=== PATIENT | female | born 1970 | race Caucasian/White ===

== ENCOUNTER 2017-10-21 11:35 | Emergency (ER) | payer BC, SELFPAY ==
[2017-10-21 14:01] VITALS: BP 149/84; PULSE 85; RESP 22; TEMP 36.4; O2SAT 100; BMI 32.0
--- NOTE | 2017-10-21 15:02 | HMH.EDUTC ---
[facility] [place] Clinical Impression: Cellulitis of right breast Acute serous otitis media of right ear Qualifiers: Recurrence: not specified as recurrent Qualified Code(s): H65.01 - Acute serous otitis media, right ear Disposition: Home, Self-Care Condition on Discharge: Good Instructions: DI for Cellulitis -- Adult, DI for Mastitis, DI for Eustachian Tube Dysfunction-Adult Additional Instructions: * Start antibiotic(s) immediately and be sure to take as ordered for the FULL length of time although you should start to see improvement over the next 24-48 hours. FU if 24 hours for reevaluation. I know you don't have primary care so you can return to [facility] or Dr. Bruce, your S[employer]IOR [employer]. * Monitor closely. Outlined redness so that you can monitor easier. FU immediately for new or worsening symptoms ( including but not limited to redness, swelling, red streaking, fever, chills). * Warm compresses 15 min 3-4 times a day * Monitor Temp. Seek treatment if fever develops. * For pain/inflammation: Tylenol every 4 hours as needed no more then 5 times a day or 4000mg in 24 hours and/or ibuprofen every 6 hours as needed no more then 3200mg in 24 hours (as long as your primary care doctor has told you that it is ok to take both) for fever/aches/pain. ER if fever no less than 101 despite tylenol and ibuprofen For your ear Can be due to eustachian tube dysfunction. Sleep elevated Start flonase and claritin as discussed No steroids w/ current breast infection. Prescriptions: Fluticasone Propionate [Flonase 50mcg nasal spray 16gm] 2 spr NS DAILY #1 bottle Loratadine [Claritin 10mg Tablet] 10 mg PO DAILY #14 tablet Sulfamethoxazole/Trimethoprim [Bactrim DS tablet] 2 each PO BID #40 tablet Referrals: Jed Bruce MD [Staff Physician] - (As we discussed. 24 hours for reevaluation and immediately for new or worsening symptoms. ) Time of Disposition: 15:19 Medical Decision Making Vital Signs: 10/21/17 14:01 Temperature 97.5 F L Temperature Source Temporal Artery Scan Pulse Rate [Right Radial] 85 Respiratory Rate 22 Blood Pressure [Right Arm] 149/84 Blood Pressure Mean [Right Arm] 105 Blood Pressure Source [Right Arm] Automatic Cuff Blood Pressure Position [Right Arm] Sitting 02 Sat by Pulse Oximetry 100 Oxygen Delivery Method Room Air - Junior Inquiry Pt receiving controlled substance: No - Reevaluation(s) Time: 15:10 Reevaluation #1: Discussed transfer to er to rule out breast abscess and for possible IV antibiotics. Pt refused. wants PO antibiotics and if no better or gets worse, will follow up at that time. STRONGLY recommended reevaluation in 24 hours but sooner for worsening symptoms like fever, malaise, bodyaches, nausea [facility] [place] - General Stated complaint: poss spider bite Time Seen by Provider: 10/21/17 15:02 Mode of Arrival: Family Vehicle Source of Information: Patient Description of Symptoms (Recalled from Triage Doc. by RN): PT C/O RIGHT EAR PAIN AND POSSIBLE SPIDER BIT ON RIGHT BREAST. HEENT Symptoms (Recalled from RN notes): Yes (RIGHT EAR PAIN) Resp Symptoms (Recalled from RN notes): No Skin Symptoms (Recalled from RN notes): No MS Symptoms (Recalled from RN notes): No Functional Status (Recalled from RN notes): NA - History of Present Illness Provider Complaint: c/o painful red right breast that she thinks could be the result of a spider bite but while here, also feeling like fluid behind right ear. Hx of this in the past and typically takes steroids for it. Right breast discomfort first noticed yesterday. Mild. Redness seen. Woke up this morning w/ more redness and more pain. Tylenol and motrin help. No fever, bodyaches, chills, nausea. thinks related to spider bite but no known injury/trauma. Just because spider bites turn your skin red . Right ear pressure started 2-3 days ago. Hx of fluid behind my ear drum . Hasn't taken or tried anything for symptoms except tylenol and motrin. That isn't helping. - Rela
--- NOTE | 2017-10-21 15:11 | ED_ITS ---
[facility] – [place] Disposition Clinical Impression: Cellulitis of right breast Acute serous otitis media of right ear Qualifiers: Recurrence: not specified as recurrent Qualified Code(s): H65.01 - Acute serous otitis media, right ear Disposition: Home, Self-Care Condition on Discharge: Good Instructions: DI for Cellulitis -- Adult, DI for Mastitis, DI for Eustachian Tube Dysfunction-Adult Additional Instructions: * Start antibiotic(s) immediately and be sure to take as ordered for the FULL length of time although you should start to see improvement over the next 24-48 hours. FU if 24 hours for reevaluation. 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 * Monitor closely. Outlined redness so that you can monitor easier. FU immediately for new or worsening symptoms ( including but not limited to redness , swelling, red streaking, fever, chills). * Warm compresses 15 min 3-4 times a day * Monitor Temp. Seek treatment if fever develops. * For pain/inflammation: Tylenol every 4 hours as needed no more then 5 times a day or 4000mg in 24 hours and/or ibuprofen every 6 hours as needed no more then 3200mg in 24 hours (as long as your primary care doctor has told you that it is ok to take both) for fever/aches/pain. ER if fever no less than 101 despite tylenol and ibuprofen For your ear Can be due to eustachian tube dysfunction. Sleep elevated Start flonase and claritin as discussed No steroids w/ current breast infection. Prescriptions: Fluticasone Propionate [Flonase 50mcg nasal spray 16gm] 2 spr NS DAILY #1 bottle Loratadine [Claritin 10mg Tablet] 10 mg PO DAILY #14 tablet Sulfamethoxazole/Trimethoprim [Bactrim DS tablet] 2 each PO BID #40 tablet Referrals: Jed Bruce MD [Staff Physician] - (As we discussed. 24 hours for reevaluation and immediately for new or worsening symptoms. ) Time of Disposition: 15:19 Medical Decision Making Vital Signs: 10/21/17 14:01 Temperature 97.5 F L Temperature Source Temporal Artery Scan Pulse Rate [Right Radial] 85 Respiratory Rate 22 Blood Pressure [Right Arm] 149/84 Blood Pressure Mean [Right Arm] 105 Blood Pressure Source [Right Arm] Automatic Cuff Blood Pressure Position [Right Arm] Sitting 02 Sat by Pulse Oximetry 100 Oxygen Delivery Method Room Air - Junior Inquiry Pt receiving controlled substance: No - Reevaluation(s) Time: 15:10 Reevaluation #1: Discussed transfer to er to rule out breast abscess and for possible IV antibiotics. Pt refused. wants PO antibiotics and if no better or gets worse, will follow up at that time. STRONGLY recommended reevaluation in 24 hours but sooner for worsening symptoms like fever, malaise, bodyaches, nausea [facility] – [place] HPI - General Stated complaint: poss spider bite Time Seen by Provider: 10/21/17 15:02 Mode of Arrival: Family Vehicle Source of Information: Patient Description of Symptoms (Recalled from Triage Doc. by RN): PT C/O RIGHT EAR PAIN AND POSSIBLE SPIDER BIT ON RIGHT BREAST. HEENT Symptoms (Recalled from RN notes): Yes (RIGHT EAR PAIN) Resp Symptoms (Recalled from RN notes): No Skin Symptoms (Recalled from RN notes): No MS Symptoms (Recalled from RN notes): No Functional Status (Recalled from RN notes): NA - History of Present Illness Provider Complaint: c/o painful red right breast that she thinks could be the result of a spider bite but while here, also feeling like fluid behind right ear. Hx of this in the past and typically takes steroids for it. Right b
== END 2017-10-21 15:28 | disposition home or self-care (01) ==
PROVIDERS: Emergency Provider Nurse Practitioner Family
DX: N61.1 Abscess of the breast and nipple (principal); H65.01 Acute serous otitis media, right ear; F17.210 Nicotine dependence, cigarettes, uncomplicated
CPT/HCPCS: 99202

== ENCOUNTER 2017-12-04 17:23 | Emergency (ER) | payer BC, OTHER, SELFPAY ==
[2017-12-04 18:45] VITALS: BP 111/80; PULSE 76; RESP 20; TEMP 36.8; O2SAT 99; BMI 34.0
--- NOTE | 2017-12-04 18:45 | XR_ITS ---
XR foot LT min 3V Ordering Physician: Susan Weems Patient Age: 47 years: Female HISTORY: ITS.REASON climbed up and down latter with now foot pain. No acute injury: Left foot PAIN foot pain left TECHNIQUE: 3 views left foot left COMPARISON :None of left foot. There is a right foot from 2016 FINDINGS Left foot is intact with no fracture evident. Bones well mineralized joint spaces well-maintained. Carpals unremarkable. Plantar calcaneal spur 7 mm length well-defined & similar to prior studies right foot . There is question regarding potential fracture at the proximal third and fourth metatarsal but believe these are intact with the overlapping contour lines from the articulating adjacent metatarsal base accounts the appearance here with no convincing fracture.: IMPRESSION . No no fracture evident . Left foot intact. Plantar calcaneal spur noted
--- NOTE | 2017-12-04 19:07 | HMH.EDUTC ---
[facility] [place]: Fracture of metatarsal bone of left foot Qualifiers: Encounter type: initial encounter Metatarsal bone: third Fracture type: closed Fracture alignment: nondisplaced Qualified Code(s): S92.335A - Nondisplaced fracture of third metatarsal bone, left foot, initial encounter for closed fracture Disposition: Home, Self-Care Condition on Discharge: Good Instructions: How To Perform RICE (Rest, Ice, Compress, Elevate) Additional Instructions: *RICE, Rest the extremity, Ice 15-20 minutes 3-4 times daily, Compress- wear the artur wrap as discussed as much as possible to help reduce swelling and pain, Elevate the extremity when at rest *Artur wrap is for support and help control swelling, use it except in the shower. Be sure that is not to tight but not to loose either *Elevate when resting *Ibuprofen 600-800mg every 6-8 hours as needed for pain an inflammation. If need something more can take Tylenol in between doses of Ibuprofen to help Immediately follow up for new or worsening of symptoms, or no noticeable improvement over the next 3-5 days Referrals: Dania Swain DPM [Physician] - Forms: Work/School Release Time of Disposition: 19:24 Medical Decision Making - Medical Records Medical records reviewed: Yes: I reviewed the patient's medical records. Vital Signs: 12/04/17 18:45 Temperature 98.2 F Temperature Source Temporal Artery Scan Pulse Rate [Right] 76 Respiratory Rate 20 Blood Pressure [Right Arm] 111/80 Blood Pressure Mean [Right Arm] 90 Blood Pressure Source [Right Arm] Automatic Cuff Blood Pressure Position [Right Arm] Sitting 02 Sat by Pulse Oximetry 99 Oxygen Delivery Method Room Air Orders (Tests/Meds): ORDERS Category Date Time Status XR foot LT min 3V Stat Exams 12/04/17 18:45 Taken - Radiology Data #1 Image(s): Foot/Toes Image Reviewed: Yes I reviewed the patient's radiology image w/the ED provider Per Dr Katarzyna Jones Physiciain Possible fracture of the proximal metatarsal third toe - Junior Inquiry Pt receiving controlled substance: No Junior was queried for this patient: No [facility] [place] General Stated complaint: L foot pain Mode of Arrival: Ambulatory Source of Information: Patient Limitations: No Limitations Description of Symptoms (Recalled from Triage Doc. by RN): LEFT FOOT PAIN HEENT Symptoms (Recalled from RN notes): No Resp Symptoms (Recalled from RN notes): No Skin Symptoms (Recalled from RN notes): No MS Symptoms (Recalled from RN notes): Yes Functional Status (Recalled from RN notes): N - History of Present Illness Provider Complaint: Patient state that she walks up and down a ladder continuously at work State that today after work she began to have pain in the top of her foot that radiates around both sides of foot State that she took a motrin and it didn't help with pain so she came in to see if she may have done something to hurt her foot - Related Data Previous Rx's Medication Instructions Recorded Fluticasone Propionate [Flonase 2 spr NS DAILY #1 bottle 10/21/17 50mcg nasal spray 16gm] Loratadine [Claritin 10mg Tablet] 10 mg PO DAILY #14 tablet 10/21/17 Sulfamethoxazole/Trimethoprim 2 each PO BID #40 tablet 10/21/17 [Bactrim DS tablet] Allergies Allergy/AdvReac Type Severity Reaction Status Date / Time No Known Allergies Allergy Verified 10/21/17 12:33 - Worker's Comp Is this a Worker's Comp case?: No [facility] History I have reviewed the patient's past medical history: Yes Medical History: Denies:: Cancer, Diabetes Mellitus Type 1, Diabetes Mellitus Type 2, Hypertension, MRSA Other Surgeries: Yes: Hysterectomy-Partial Amputation: No Fractures: No - Social History Smoking Status: Current every day smoker Tobacco Type: cigarettes Alcohol Intake: never - Psychiatric History Expresses thoughts of harming self/others: None Suicide Plan Description: No Plan ROS Obtained: Yes All systems reviewe
--- NOTE | 2017-12-04 19:12 | ED_ITS ---
[facility] [place]ression: Fracture of metatarsal bone of left foot Qualifiers: Encounter type: initial encounter Metatarsal bone: third Fracture type: closed Fracture alignment: nondisplaced Qualified Code(s): S92.335A - Nondisplaced fracture of third metatarsal bone, left foot, initial encounter for closed fracture Disposition: Home, Self-Care Condition on Discharge: Good Instructions: How To Perform RICE (Rest, Ice, Compress, Elevate) Additional Instructions: *RICE, Rest the extremity, Ice 15-20 minutes 3-4 times daily, Compress- wear the artur wrap as discussed as much as possible to help reduce swelling and pain, Elevate the extremity when at rest *Artur wrap is for support and help control swelling, use it except in the shower. Be sure that is not to tight but not to loose either *Elevate when resting *Ibuprofen 600-800mg every 6-8 hours as needed for pain an inflammation. If need something more can take Tylenol in between doses of Ibuprofen to help Immediately follow up for new or worsening of symptoms, or no noticeable improvement over the next 3-5 days Referrals: Dania Swain DPM [Physician] - Forms: Work/School Release Time of Disposition: 19:24 Medical Decision Making - Medical Records Medical records reviewed: Yes: I reviewed the patient's medical records. Vital Signs: 12/04/17 18:45 Temperature 98.2 F Temperature Source Temporal Artery Scan Pulse Rate [Right] 76 Respiratory Rate 20 Blood Pressure [Right Arm] 111/80 Blood Pressure Mean [Right Arm] 90 Blood Pressure Source [Right Arm] Automatic Cuff Blood Pressure Position [Right Arm] Sitting 02 Sat by Pulse Oximetry 99 Oxygen Delivery Method Room Air Orders (Tests/Meds): ORDERS Category Date Time Status XR foot LT min 3V Stat Exams 12/04/17 18:45 Taken - Radiology Data #1 Image(s): Foot/Toes Image Reviewed: Yes I reviewed the patient's radiology image w/the ED provider Per Dr Katarzyna Jones Physiciain Possible fracture of the proximal metatarsal third toe - Junior Inquiry Pt receiving controlled substance: No Junior was queried for this patient: No [facility] [place] - General Stated complaint: L foot pain Mode of Arrival: Ambulatory Source of Information: Patient Limitations: No Limitations Description of Symptoms (Recalled from Triage Doc. by RN): LEFT FOOT PAIN HEENT Symptoms (Recalled from RN notes): No Resp Symptoms (Recalled from RN notes): No Skin Symptoms (Recalled from RN notes): No MS Symptoms (Recalled from RN notes): Yes Functional Status (Recalled from RN notes): N - History of Present Illness Provider Complaint: Patient state that she walks up and down a ladder continuously at work State that today after work she began to have pain in the top of her foot that radiates around both sides of foot State that she took a motrin and it didn't help with pain so she came in to see if she may have done something to hurt her foot - Related Data Previous Rx's Medication Instructions Recorded Fluticasone Propionate [Flonase 2 spr NS DAILY #1 bottle 10/21/17 50mcg nasal spray 16gm] Loratadine [Claritin 10mg Tablet] 10 mg PO DAILY #14 tablet 10/21/17 Sulfamethoxazole/Trimethoprim 2 each PO BID #40 tablet 10/21/17 [Bactrim DS tablet] Allergies Allergy/AdvReac Type Severity Reaction Status Date / Time No Dong
[2017-12-04 19:15] VITALS: BP 110/80; PULSE 76; RESP 20; TEMP 36.8
[2017-12-04 19:37] VITALS: BP 110/80; PULSE 76; RESP 20; TEMP 36.8
== END 2017-12-04 19:37 | disposition home or self-care (01) ==
PROVIDERS: Emergency Provider Nurse Practitioner
DX: S92.335A Nondisplaced fracture of third metatarsal bone, left foot, initial encounter for closed fracture (principal); F17.210 Nicotine dependence, cigarettes, uncomplicated; X50.3XXA Overexertion from repetitive movements, initial encounter; Y92.89 Other specified places as the place of occurrence of the external cause
CPT/HCPCS: 73630; 99202

== ENCOUNTER → 2018-12-14 15:02 | Outpatient (CLI) | payer OTHER, SELFPAY ==
--- NOTE | 2018-12-14 15:05 | US_ITS ---
US transvaginal HISTORY: Right lower quadrant pain, pelvic pain ITS.REASON: US T/V- RLQP ORDERING PHYSICIAN: Jed Bruce MD PATIENT AGE: 48 years Comparison: None FINDINGS: There has been a prior hysterectomy. The vaginal cuff has an unremarkable appearance. The right ovary is 3.6 x 2.4 cm and contains 2 follicles each at 1 cm. The left ovary is 1.7 x 1.4 cm and contains a couple small follicles. Blood flow is present within both ovaries. No cul-de-sac fluid is evident. The urinary bladder is distended with an estimated volume of 83.5 mm. This was obtained as a post void exam. IMPRESSION: 1. Moderate amount of postvoid residual urine. 2. Prior hysterectomy otherwise negative pelvic ultrasound
== END ==
PROVIDERS: PCP Family Medicine; Visit Provider Nurse Practitioner Obstetrics & Gynecology
DX: R10.31 Right lower quadrant pain (principal)
CPT/HCPCS: 76830

== ENCOUNTER → 2019-02-05 10:39 | Outpatient (CLI) | payer OTHER, SELFPAY ==
--- NOTE | 2019-02-05 11:11 | XR_ITS ---
XR foot wt bearing LT 3V HISTORY: ITS.REASON: pain ORDERING PHYSICIAN: Dania Swain DPM PATIENT AGE: 48 years COMPARISON: None FINDINGS: No fracture or dislocation. There is a small calcaneal spur. There is normal alignment. There is mild sclerosis of the proximal aspect of the navicular with suggestion of some minimal subarticular cystic change at the talonavicular joint. IMPRESSION: Mild degenerative changes of the navicular with some sclerosis and subarticular cystic change at the talonavicular joint
== END ==
PROVIDERS: PCP Family Medicine; Visit Provider Podiatrist
DX: M79.672 Pain in left foot (principal)
CPT/HCPCS: 73630

== ENCOUNTER → 2019-04-09 14:15 | Outpatient (CLI) | payer OTHER, SELFPAY ==
--- NOTE | 2019-04-09 14:16 | CT_ITS ---
CT sinus wo con CLINICAL INDICATION: ITS.REASON: Sinusitis ORDERING PHYSICIAN: Donte Price MD PATIENT AGE: 48 years COMPARISON: None TECHNIQUE:Axial images obtained with sagittal and coronal reformats. All CT scans at the facility use one or more dose reduction, viz: automated exposure control, ma/kV adjustment per patient size (including targeted exams where dose is matched to indication, i.e. head), or iterative reconstruction technique. FINDINGS:There is a 2.0 cm polypoid density in the left maxillary sinus. There are frothy soft tissue densities which would suggest acute inflammation in the sphenoid sinus. Remainder of the paranasal sinuses are clear. Osseous structures are intact. Nasal turbinates are normal. The septum is midline. There are ethmoid Igor's air cells bilaterally however the infundibular areas are fairly well aerated although moderately narrowed. IMPRESSION: Left maxillary sinus retention cyst. Possible acute sphenoid sinus. Bilateral ethmoid Igor's air cells causing narrowing of the infundibular areas.
== END ==
PROVIDERS: PCP Family Medicine; Visit Provider Otolaryngology
DX: J32.9 Chronic sinusitis, unspecified (principal)
CPT/HCPCS: 70486

== ENCOUNTER → 2019-04-23 14:40 | Outpatient (CLI) | payer OTHER, SELFPAY ==
[2019-04-23 15:16] LABS: Basophils # 0.1 K/mm3 (0-0.2); Basophils % 0.3 % (0.1-2.0); Eosinophils # 0.2 K/mm3 (0.0-0.4); Hematocrit 47.2 % (37.0-47.0); Hemoglobin 14.8 g/dL (12.2-16.2); Lymphocytes # 2.7 K/mm3 (0.7-4.5); Lymphocytes % 16.5 % (10-50); Mean Corpuscular HGB Conc 31.3 g/dL (31.8-35.4); Mean Corpuscular Hemoglobin 30.6 pg (27.0-31.2); Mean Corpuscular Volume 97.8 fl (81-99); Mean Platelet Volume 7.9 fl (7.4-10.4); Monocytes # 0.6 K/mm3 (0.1-1.0); Monocytes % 3.8 % (1.7-9.3); Neutrophils # 12.9 K/mm3 (1.8-7.8); Neutrophils % 78.3 % (37.0-80.0); Platelet Count 393 K/mm3 (142-424); Red Blood Count 4.83 M/mm3 (4.20-5.40); Red Cell Distribution Width 13.3 % (11.5-17.5); White Blood Count 16.5 K/mm3 (4.8-10.8)
[2019-04-23 16:00] LABS: MANUAL DIFFERENTIAL MANUAL DIFFERENTIAL (MANUAL DIFF)
[2019-04-23 16:32] LABS: Alanine Aminotransferase 22 U/L (12-78); Albumin Level 3.4 gm/dL (3.4-5.0); Albumin/Globulin Ratio 1.2 (1.1-1.8); Alkaline Phosphatase 83 U/L (46-116); Anion Gap 12.1 mEq/L (5-15); Aspartate Amino Transferase 11 U/L (15-37); Bilirubin,Total 0.1 mg/dL (0.2-1.0); Blood Urea Nitrogen 12 mg/dL (7-18); Calcium 9.3 mg/dL (8.5-10.1); Carbon Dioxide 29 mmol/L (21.0-32.0); Chloride 99 mmol/L (98-107); Creatinine,Serum 0.66 mg/dL (0.55-1.02); Estimated Glomerular Filt Rate 95 ml/min (>60); GFR (African American) 115 ML/MIN (>60); Globulin 2.9 gm/dl (1.3-3.2); Glucose 122 mg/dL (74-106); Potassium 4.1 mmoL/L (3.5-5.1); Sodium 136 mmol/L (136-145); Total Protein,Serum 6.3 gm/dL (6.4-8.2)
[2019-04-23 17:07] LABS: Lymphocytes % 12 % (10-50); Monocytes % 7 % (2-9); Neutrophils % 80 % (42-76); Platelet Estimate Normal; RBC Morphology Normal; Total Cells Counted 100
== END ==
PROVIDERS: PCP Family Medicine; Visit Provider Otolaryngology
DX: J32.0 Chronic maxillary sinusitis (principal); J34.2 Deviated nasal septum; Z01.818 Encounter for other preprocedural examination
CPT/HCPCS: 36415; 80053; 85007; 85025; 93005

== ENCOUNTER → 2019-08-14 12:53 | Outpatient (CLI) | payer OTHER, SELFPAY ==
--- NOTE | 2019-08-14 12:54 | MR_ITS ---
PROCEDURE: MR FOOT LT WO CON CLINICAL INDICATION: left foot pain Capsulitis of the MTP joint, edema and pain, possible neuroma, unresolved left foot pain common aroma of 3rd interspace COMPARISON: [id number] XR foot wt bearing LT 3V from 02/05/2019 TECHNIQUE: Routine multiplanar multi echo sequences are performed without gadolinium enhancement. FINDINGS: There is a moderate degree of motion artifact which somewhat obscures fine detail. There is heterogeneous decreased T1 and slight increased T2 signal involving the proximal and dorsal aspect of the navicular which could be due to a mild degree of avascular necrosis. Hypertrophic changes are present at this area as well. There is some minimal cortical regularity of the posterior articular surface of the navicular bone. There is a small subcutaneous cystic lesion along the dorsal aspect of the foot measuring 14 x 5 by 10 mm. This is dorsal to the 2nd cuneiform consistent with a ganglion cyst. No evidence of Black's neuroma or significant amount of fluid at the metatarsal phalangeal junction. The visualized ligaments and tendons have an unremarkable appearance. IMPRESSION: 1. Abnormal signal intensity of the navicular with hypertrophy of the navicular. This is nonspecific but could be seen with avascular necrosis. 2. Ganglion cyst along the dorsum of the foot at the 2nd cuneiform Dictated by: Catrachito Trent MD 08/15/2019 15:08 Electronically signed by Catrachito Trent MD in [place] 08/19/2019 11:00
== END ==
PROVIDERS: PCP Family Medicine; Visit Provider Podiatrist
DX: G57.62 Lesion of plantar nerve, left lower limb (principal); M77.42 Metatarsalgia, left foot; M77.52 Other enthesopathy of left foot and ankle
CPT/HCPCS: 73718

== ENCOUNTER → 2020-03-16 09:36 | Outpatient (CLI) | payer OTHER, SELFPAY ==
--- NOTE | 2020-03-16 09:38 | US_ITS ---
APPROVED REPORT Exam Type: Lower Extremity Segmental Pressures Medical Lab Director: Marlena Gomez RVT Indications Claudication: Bilaterally Current Smoker COLD EXTREMITIES Risk Factors Current Smoker Pressures/Indices Right Indices Left Indices Brachial 133.00 mmHg Brachial 134.00 mmHg Low Thigh 158.00 mmHg 1.18 Low Thigh 155.00 mmHg 1.16 Calf 164.00 mmHg 1.22 Calf 156.00 mmHg 1.16 Ankle(PT) 173.00 mmHg 1.29 Ankle(PT) 155.00 mmHg 1.16 Ankle(DP) 162.00 mmHg 1.21 Ankle(DP) 137.00 mmHg 1.02 Digit 120.00 mmHg 0.90 Digit 127.00 mmHg 0.95 Findings RT MARIPOSA:1.29 LT MARIPOSA:1.16 RT TBI:0.90 LT TBI:0.95 NORMAL PULSES BILATERAL NORMAL WAVEFORMS BILATERAL Conclusion No evidence significant arterial disease throughout the right and left lower extremities as evidenced by normal resting PVR waveforms and normal resting indices. Electronically signed by : Catrachito Trent MD 03/16/2020 16:17:26
--- NOTE | 2020-03-16 09:40 | XR_ITS ---
PROCEDURE: XR FOOT WT BEARING RT 3V CLINICAL INDICATION: pain and swelling COMPARISON: FTR3 FOOT-RT-3 VIEWS from 08/16/2016 [id number] XR foot LT min 3V from 12/04/2017 [id number] XR foot wt bearing LT 3V from 02/05/2019 FINDINGS: No fracture or dislocation. No lytic or blastic change. There is normal mineralization. The joint spaces are well-preserved. No significant degenerative/arthritic changes. No erosive changes evident. Other findings:Cortical thickening is present involving the distal shaft of the 3rd metatarsal not significantly changed and could be related to an old stress fracture. There is a small calcaneal spur. IMPRESSION: No acute finding with no interval change. Possible old stress fracture of the 3rd metatarsal Dictated by: Catrachito Trent MD 03/16/2020 11:48 Electronically signed by Catrachito Trent MD in [place] 03/16/2020 11:48
--- NOTE | 2020-03-16 09:40 | XR_ITS ---
PROCEDURE: XR FOOT WT BEARING LT 3V CLINICAL INDICATION: pain Pain and swelling COMPARISON: FTR3 FOOT-RT-3 VIEWS from 08/16/2016 [id number] XR foot LT min 3V from 12/04/2017 [id number] XR foot wt bearing LT 3V from 02/05/2019 FINDINGS: No fracture or dislocation. No lytic or blastic change. There is normal mineralization. The joint spaces are well-preserved. No significant degenerative/arthritic changes. No erosive changes evident. Other findings:There is a small calcaneal spur. There is bony hypertrophic change along the dorsal and medial aspect of the navicular IMPRESSION: No acute findings. Dictated by: Catrachito Trent MD 03/16/2020 11:46 Electronically signed by Catrachito Trent MD in [place] 03/16/2020 11:46
== END ==
PROVIDERS: PCP Family Medicine; Visit Provider Podiatrist
DX: R09.89 Other specified symptoms and signs involving the circulatory and respiratory systems (principal); R68.89 Other general symptoms and signs; M79.672 Pain in left foot; M19.072 Primary osteoarthritis, left ankle and foot
CPT/HCPCS: 73630; 93923

== ENCOUNTER 2020-05-04 14:22 | Emergency (ER) | payer OTHER, SELFPAY ==
[2020-05-04 15:06] VITALS: BP 138/92; PULSE 85; RESP 20; TEMP 36.8; O2SAT 99; BMI 38.2
--- NOTE | 2020-05-04 15:42 | HMH.EDUTC ---
[facility] [place] Disposition Clinical Impression: URI (upper respiratory infection) Qualifiers: URI type: unspecified URI Qualified Code(s): J06.9 - Acute upper respiratory infection, unspecified Disposition: Home, Self-Care Condition on Discharge: Good Instructions: Sinusitis, DI for Sinusitis, Fluticasone Nasal [place], Amoxicillin, Sore Throat, DI for Ear Pain-Adult Additional Instructions: *Monitor Temp, Over the counter Motrin or Tylenol as directed/as needed Tylenol every 4 hours and Motrin every 6 hours (as long as your family doctor has told you that you can take it) for fever or pain. and straight to ER if unable to lower temp less than 101.0 after medication given *Warm salt water gargles may help to soothe the throat *Throat Lozenges *Warm fluids like tea with honey may help to soothe the throat *Sleep elevated *Humidifier/Vaporizer *Flonase 2 sprays in each nostril daily but be aware that it may take 2-3 days before you notice improvement *Take medication as prescribed Follow up with Family Doctor if no improvement or any worsening of symptoms Follow up IMMEDIATELY for new or worsening symptoms or no Noticeable improvement over the next 48-72 hours. 911 for difficulty breathing or swallowing Prescriptions: Amoxicillin [Amoxicillin 500mg Cap] 500 mg PO TID #30 cap Transmission Status: Pending to [facility] Fluticasone Propionate [Flonase 50mcg nasal spray 16gm] 1 - 2 spr NS DAILY #1 bottle Transmission Status: Pending to [id number] Referrals: Dionicio Burt [Primary Care Provider] - As needed Time of Disposition: 15:47 Medical Decision Making - Junior Inquiry Pt receiving controlled substance: No Junior was queried for this patient: No Vital Signs: 05/04/20 15:06 Temperature 98.3 F Temperature Source Oral Pulse Rate [Right Brachial] 85 Respiratory Rate 20 Blood Pressure [Right Arm] 138/92 H Blood Pressure Mean [Right Arm] 107 Blood Pressure Source [Right Arm] Automatic Cuff Blood Pressure Position [Right Arm] Sitting 02 Sat by Pulse Oximetry 99 Oxygen Delivery Method Room Air [facility] [place] HPI - General Stated complaint: ear pain Time Seen by Provider: 05/04/20 15:42 Mode of Arrival: Ambulatory Source of Information: Patient Limitations: No Limitations Description of Symptoms (Recalled from Triage Doc. by RN): PATIENT C/O NASAL CONGESTION AND LEFT EAR ACHE HEENT Symptoms (Recalled from RN notes): Yes Resp Symptoms (Recalled from RN notes): No Skin Symptoms (Recalled from RN notes): No MS Symptoms (Recalled from RN notes): No Functional Status (Recalled from RN notes): WNL - History of Present Illness Provider Complaint: Patient states that she has been having sinus congestion, feeling of pressure in her sinuses and pain in her left ear States that it has continued to get worse over the last couple of days States that she hasnt had a fever that she is aware of but wanted to get checked because it hurt when she would swallow - Related Data Previous Rx's Medication Instructions Recorded Amoxicillin [Amoxicillin 500mg 500 mg PO TID #30 cap 05/04/20 Cap] Fluticasone Propionate [Flonase 1 - 2 spr NS DAILY #1 bottle 05/04/20 50mcg nasal spray 16gm] Allergies Allergy/AdvReac Type Severity Reaction Status Date / Time No Known Allergies Allergy Verified 04/30/20 13:44 - Worker's Comp Is this a Worker's Comp case?: No [facility] History - Hepatitis A Screen Drug use history?: No High risk sexual behaviors?: No History of sexually transmitted infection?: No Currently employed?: No Childcare worker?: No Do you have indoor plumbing?: Yes Do you have electricity?: Yes Attestation statement:: This patient has been screened for Hepatitis A risk factors. I have reviewed the patient's past medical history: Yes Medical History: Reports:: Anxiety Denies:: Cancer, Depression, Diabetes Mellitus Type 1, Diabetes Mellitus Type 2, Hypertension, MRSA, Seizures Other Medic
[2020-05-04 15:50] VITALS: BP 138/92; PULSE 85; RESP 20; TEMP 36.8; O2SAT 99
== END 2020-05-04 15:56 | disposition home or self-care (01) ==
PROVIDERS: Emergency Provider Nurse Practitioner; PCP Family Medicine
DX: J06.9 Acute upper respiratory infection, unspecified (principal); F41.9 Anxiety disorder, unspecified; F17.210 Nicotine dependence, cigarettes, uncomplicated; Z90.79 Acquired absence of other genital organ(s)
CPT/HCPCS: 99201

== ENCOUNTER → 2020-05-08 13:48 | Outpatient (CLI) | payer OTHER, SELFPAY ==
[2020-05-08 14:35] LABS: Basophils # 0.1 K/mm3 (0-0.2); Basophils % 0.5 % (0.1-2.0); Eosinophils # 0.2 K/mm3 (0.0-0.4); Eosinophils % 1.2 % (0.1-12.0); Hematocrit 44.2 % (37.0-47.0); Hemoglobin 14.5 g/dL (12.2-16.2); Lymphocytes # 2.2 K/mm3 (0.7-4.5); Lymphocytes % 17.4 % (10-50); Mean Corpuscular HGB Conc 32.8 g/dL (31.8-35.4); Mean Corpuscular Volume 94.5 fl (81-99); Mean Platelet Volume 7.3 fl (7.4-10.4); Monocytes # 0.6 K/mm3 (0.1-1.0); Monocytes % 4.9 % (1.7-9.3); Neutrophils # 9.6 K/mm3 (1.8-7.8); Neutrophils % 75.9 % (37.0-80.0); Platelet Count 363 K/mm3 (142-424); Red Blood Count 4.67 M/mm3 (4.20-5.40); Red Cell Distribution Width 12.9 % (11.5-17.5); White Blood Count 12.6 K/mm3 (4.8-10.8)
[2020-05-08 15:15] LABS: Alanine Aminotransferase 18 U/L (12-78); Albumin/Globulin Ratio 1.6 (1.1-1.8); Alkaline Phosphatase 89 U/L (38-126); Anion Gap 13.2 mEq/L (5-15); Aspartate Amino Transferase 22 U/L (14-36); Bilirubin,Total 0.2 mg/dl (0.2-1.3); Blood Urea Nitrogen 9 mg/dl (7-17); Calcium 9.9 mg/dl (8.4-10.2); Carbon Dioxide 28 mmol/L (22.0-30.0); Chloride 102 mmol/L (98-107); Estimated Glomerular Filt Rate 106 ml/min (>60); GFR (African American) 128 ML/MIN (>60); Globulin 2.5 g/dL (1.3-3.2); Glucose 113 mg/dl (74-100); Potassium 4.2 mmoL/L (3.5-5.1); Sodium 139 mmol/L (136-145); Total Protein,Serum 6.5 g/dl (6.3-8.2)
[2020-05-08 15:16] LABS: Erythrocyte Sedimentation Rate 17 mm/hr (0-20)
[2020-05-08 15:21] LABS: C-Reactive Protein 15.1 mg/L (0-4)
[2020-05-08 15:46] LABS: Thyroid Stimulating Hormone 1.86 uIU/mL (0.465-4.68)
[2020-05-08 20:25] LABS: Uric Acid 5.4 mg/dl (2.5-6.2)
[2020-05-08 20:59] LABS: Hemoglobin A1C 6.7 % (4.0-6.0)
[2020-05-10 11:05] LABS: Folate 7.1 ng/mL (>3.0); RA Latex Turbid. <10.0 IU/mL (0.0-13.9); Vitamin B12 631 pg/mL (232-1245)
[2020-05-12 05:38] LABS: Antinuclear Antibodies, IFA Negative (.)
[2020-05-15 12:29] LABS: 1,25 Dihydroxy Vitamin D 35 pg/mL (.); 1,25-Dihydroxy, Vitamin D-2 <10 pg/mL (.); 1,25-Dihydroxy, Vitamin D-3 35 pg/mL (.)
[2020-06-18 10:38] LABS: Nicotine 16.8
[2020-06-18 10:39] LABS: Cotinine 178.6
== END ==
PROVIDERS: Visit Provider Podiatrist
DX: M79.672 Pain in left foot (principal)
CPT/HCPCS: 36415; 80053; 80323; 82607; 82652; 82746; 83036; 84443; 84550; 85025; 85651; 86038; 86140; 86431

== ENCOUNTER → 2020-05-12 11:02 | Outpatient (CLI) | payer OTHER, SELFPAY ==
--- NOTE | 2020-05-12 11:06 | MR_ITS ---
PROCEDURE: MR FOOT LT WO/W CON CLINICAL INDICATION: pain Foot pain along the plantar surface of the foot. Possible plantar fasciitis or plantar fascial tear versus posterior tibial tendonitis or calcaneal stress fracture. COMPARISON: MR MR FOOT LT WO CON from 08/14/2019 TECHNIQUE: Routine multiplanar multi echo sequences are performed without gadolinium enhancement. FINDINGS: The tibiofibular ligaments appear intact as does the ATFL and PT FL. Deltoid ligament appears intact. There is a small amount fluid along the posterior aspect of the posterior talocalcaneal joint. No bone marrow edema apparent. The plantar fascia appears intact. The posterior tibial tendon, flexor digitorum longus and flexor hallucis longus along with the Achilles tendon have an unremarkable appearance. There is a small area of slight increased signal within the peroneus brevis tendon just distal to the retro malleolar groove region and could be due to an area tendinopathy/tendinosis. Increased T2 signal is present within the navicular posteriorly not significantly changed. IMPRESSION: 1. Possible mild tendinopathy/tendinosis of the peroneus brevis tendon. 2. No other significant anomaly. 3. There is a small joint effusion along the posterior talocalcaneal joint. Dictated b Catrachito Trent MD 05/19/2020 10:35 Catrachito Trent MD in [place] 05/19/2020 10:35
== END ==
PROVIDERS: PCP Family Medicine; Visit Provider Podiatrist
DX: M79.672 Pain in left foot (principal); M72.2 Plantar fascial fibromatosis; M76.822 Posterior tibial tendinitis, left leg; M77.42 Metatarsalgia, left foot; M77.52 Other enthesopathy of left foot and ankle; S96.912A Strain of unspecified muscle and tendon at ankle and foot level, left foot, initial encounter; X50.3XXA Overexertion from repetitive movements, initial encounter
CPT/HCPCS: 73720; A9576

== ENCOUNTER 2020-05-28 13:30 | Outpatient (RCR) | payer OTHER, SELFPAY ==
--- NOTE | 2020-03-16 09:35 | HMH.PTOPEV ---
PT Outpatient Evaluation Rehab PT Outpatient Evaluation Start: 03/16/20 09:03 Freq: Status: Active Protocol: Document 03/16/20 09:03 KAZ (Rec: 03/16/20 09:35 KAZ [id number]) Electronically Signed By Jordan Angel, PT 03/16/20 09:03 Outpatient Therapy Subjective History Subjective History Pt reports h/o chronic L foot/ heel pain beginning 2 months ago. Pt reports recent injections have improved L foot pain ~1 wk ago, however, still reports consistent lateral and medial aspect L ankle/foot pain, as well as tenderness into calf mm. Chief Complaint Pain,Stiff,Swelling, Paresthesia,Weakness Symptom Type Ache,Sharp,Dull Symptoms Relieved By Rest/Positioning,Heat Symptoms Aggravated By Standing,Walking Prior Functional Limitations Housework,Standing,Walking Current Functional Limitations Housework,Standing,Walking, Stairs Symptom Description Constant but Variable Level of pain today (0-10) 7 Pain scale - at its best (0-10) 5 Pain scale - at its worst (0-10) 9 Ankle/Foot Eval Gait Observation General Gait Pattern Observation Antalgic Gait Palpation Tenderness left Ankle/Foot Palpation Findings Tenderness Ankle/Foot Palpation Overall Comment gastroc/soleus 3/4, post tib insertion 2-3/4, peroneal insertion 2-3/4 ROM Ankle/Foot Dorsiflexion w/Knee Extended 0-10 Active Range Motion (degrees) Ankle/Foot Plantar Flexion Active Range 0-45 of Motion (degrees) Ankle/Foot Eversion Active Range of 0-20 Motion (degrees) Ankle/Foot Inversion Active Range of 0-40 Motion (degrees) Ankle/Foot ROM Limitations Soft Tissue Tightness,Pain MMT Ankle Dorsiflexion Strength Grade 4 Good Ankle Plantarflexion Strength Grade 4 Good Foot Eversion Strength Grade 4 Good Foot Inversion Strength Grade 4 Good Special Tests Ankle Anterior Drawer Test Negative Left Ankle Eversion Test Negative Left Talar Tilt Test Negative Left Ankle Inversion (supination) Test Negative Left Outpatient Therapy Assessment Impairments Problems/Impairmments Palpation Tenderness,Impaired Range of Motion,Impaired Strength,Impaired Gait Pattern ,Impaired Walking,Impaired Standing,Impaired Household Care,Impaired Stair Climbing,
--- NOTE | 2020-04-17 08:35 | HMH.RHREAS ---
Rehab Reassessment Rehab OP Re-assessment Start: 04/17/20 08:29 Freq: Status: Active Protocol: Document 04/17/20 08:30 KAZ (Rec: 04/17/20 08:35 KAZ [id number]) Electronically Signed By Jordan Angel, PT 04/17/20 08:30 Rehab Re-assessment Subjective Subjective PT REPORTS 0-4/10 L HEEL PAIN ON VAS, AND FEELS 80-90% BETTER OVERALL SINCE I EVAL Objective Objective Notes AROM: L ANKLE DF 0-20, PF 0-50 , INV 0-40, EVR 0-25 MMT: L ANKLE DF 4+/5, PF 4-4+/ 5, INV 5/5, EVR 5/5 TTP: CALCANEUS 2-3/4 Assessment Progress Assessment Progressing as Expected Assessment Notes PT W/IMPROVED STRENGTH AND AROM Patient goals met STG'S 04/22 LTG'S 02/20 Goals Not Met STG'S 10/23, LTG'S 12/21 Plan Plan PT TO CONT. W/SKILLED P.T. TO MAKE FURTHER IMPROVEMENTS IN AROM, STRENGTH, AND TTP TO ALLOW FOR OPTIMAL FUNCTION Frequency of Therapy 1-2X/WK Duration of therapy 3-4WKS Time and Billing Re-Eval Time 15 Re-Eval Billing Units 1 PHYSICIAN CERTIFICATION: I certify the specified therapy services for Carolyn Cornejo are required, authorized, and reviewed every 30 days.
== END 2020-05-28 14:25 | disposition home or self-care (01) ==
LOC: PT 13:30
PROVIDERS: Visit Provider Podiatrist
DX: M79.671 Pain in right foot; M76.822 Posterior tibial tendinitis, left leg; M79.672 Pain in left foot
CPT/HCPCS: 20560; 97010; 97014; 97033; 97035; 97110; 97163; 97164; G0283

== ENCOUNTER → 2021-06-07 09:21 | Outpatient (CLI) | payer OTHER, SELFPAY ==
--- NOTE | 2021-06-07 09:21 | US_ITS ---
PROCEDURE: US TRANSVAGINAL CLINICAL INDICATION: lower abdominal pelvic pain COMPARISON: US TRANVAG US transvaginal from 12/14/2018 FINDINGS: Prior hysterectomy. Unremarkable appearing vaginal. Left ovary and right ovary has an unremarkable appearance. No cul-de-sac fluid. IMPRESSION: Prior hysterectomy otherwise negative pelvic ultrasound Dictated by: Catrachito Trent MD 06/07/2021 14:08 Catrachito Trent MD in [place] 06/07/2021 14:08
== END ==
PROVIDERS: PCP Nurse Practitioner Obstetrics & Gynecology; Visit Provider Nurse Practitioner Obstetrics & Gynecology
DX: R10.30 Lower abdominal pain, unspecified (principal)
CPT/HCPCS: 76830

== ENCOUNTER 2021-12-13 16:11 | Emergency (ER) | payer OTHER, SELFPAY ==
[2021-12-13 16:19] VITALS: PULSE 106; RESP 18; O2SAT 98; BMI 33.2
--- NOTE | 2021-12-13 16:23 | XR_ITS ---
FINAL REPORT CLINICAL HISTORY: PAIN, hit on something at work FINDINGS: RIGHT WRIST FINDINGS: Three views show no evidence of an acute, displaced fracture or dislocation. The joint spaces appear normal. The soft tissues are unremarkable. IMPRESSION: No acute bony abnormality. Reviewed, Interpreted and Dictated by Duane Joseph III, MD Transcribed by Veronica Winkler Authenticated by Duane oJseph III, MD on 12/13/2021 05:01:49 PM [facility]
--- NOTE | 2021-12-13 17:13 | HMH.EDUTC ---
[facility] [place] Disposition Clinical Impression: Wrist sprain Qualifiers: Encounter type: initial encounter Laterality: right Qualified Code(s): S63.501A - Unspecified sprain of right wrist, initial encounter Disposition: Home, Self-Care Condition on Discharge: Good Instructions: DI for Contusion, How To Perform RICE (Rest, Ice, Compress, Elevate) Additional Instructions: *RICE, Rest the extremity, Ice 15-20 minutes 3-4 times daily, Compress- wear the arutr wrap as discussed as much as possible to help reduce swelling and pain, Elevate the extremity when at rest *Artur wrap/wrist splint is for support and help control swelling, use it except in the shower. Be sure that is not to tight but not to loose either *Elevate when resting *Ibuprofen as directed on package every 6-8 hours as needed for pain an inflammation. If need something more can take Tylenol in between doses of Ibuprofen to help Immediately follow up with your family doctor for new or worsening of symptoms, or no noticeable improvement over the next 3-5 days Referrals: Jed Bruce MD [Primary Care Provider] - As needed Time of Disposition: 17:41 Medical Decision Making - Junior Inquiry Pt receiving controlled substance: No Junior was queried for this patient: No Vital Signs: 12/13/21 16:19 12/13/21 17:16 Temperature 98.6 F Temperature Source Oral Pulse Rate [Left Radial] 106 H 106 H Respiratory Rate 18 18 Blood Pressure [Right Arm] 117/86 Blood Pressure Mean [Right Arm] 96 Blood Pressure Source [Right Arm] Automatic Cuff Blood Pressure Position [Right Arm] Sitting 02 Sat by Pulse Oximetry 98 98 Oxygen Delivery Method Room Air Room Air - Radiology Data #1 Image(s): Wrist Image Reviewed: Yes I have reviewed radiologist's interpretation IMPRESSION: No acute bony abnormality. [facility] [place] HPI - General Stated complaint: O/A 12/13 @ 1400 R wrist injury Time Seen by Provider: 12/13/21 17:13 Mode of Arrival: Ambulatory Source of Information: Patient Limitations: No Limitations Description of Symptoms (Recalled from Triage Doc. by RN): right wrist pain after hitting it on a gisela at work today - History of Present Illness Provider Complaint: Patient states that she bumped her hand against the gisela at work States that she has a bruised area on her wrist from where she hit it so she wanted to come in and get it checked out States that she has been moving it and using it since the accident - Related Data Previous Rx's Medication Instructions Recorded estradiol 0.075 mg/24 hr 1 patch TOPICAL .semiweekly #24 03/01/21 semiweekly transdermal patch each Allergies Allergy/AdvReac Type Severity Reaction Status Date / Time No Known Allergies Allergy Verified 12/13/21 17:21 [facility] History - Hepatitis A Screen Attestation statement:: This patient has been screened for Hepatitis A risk factors. I have reviewed the patient's past medical history: Yes Medical History: Reports:: Anxiety Denies:: Cancer, Depression, Diabetes Mellitus Type 1, Diabetes Mellitus Type 2, Hypertension, MRSA, Seizures Other Medical History: Denies: Blood Transfusion Reaction Laterality Cases: Bilateral: Other Other Surgeries: Yes: Colonoscopy, Hysterectomy-Partial, Sinus Surgery, Other Amputation: No Fractures: No Comment: lipoma removed years ago - Social History Smoking Status: Current every day smoker Tobacco Type: cigarettes # Packs/Day (cigarettes): 1 Alcohol Intake: never Alcohol Intake Frequency:: other Substance Use Type: denies use Occupational Status: other Housing: house Household Members: spouse - Psychiatric History Pschychiatric History:: Reports:: Anxiety Denies:: Depression Family Hx:: Diabetes, Hypertension ROS Obtained: Yes All systems reviewed & no additional complaints, Yes Systems reviewed as appropriate & no additional complaints - Constitutional Constitutional: Reports system reviewed and no additional complaints, except as Marvin ni
[2021-12-13 17:16] VITALS: BP 117/86; PULSE 106; RESP 18; TEMP 37; O2SAT 98
[2021-12-13 17:47] VITALS: BP 117/86; PULSE 106; RESP 18; TEMP 37; O2SAT 98
== END 2021-12-13 17:46 | disposition home or self-care (01) ==
PROVIDERS: Emergency Provider Nurse Practitioner; PCP Nurse Practitioner Obstetrics & Gynecology
DX: S63.501A Unspecified sprain of right wrist, initial encounter (principal); W22.8XXA Striking against or struck by other objects, initial encounter; Y92.69 Other specified industrial and construction area as the place of occurrence of the external cause; Y99.0 Civilian activity done for income or pay
CPT/HCPCS: 73110; 99212; G0463

== ENCOUNTER 2022-02-17 13:17 | Emergency (ER) | payer OTHER, SELFPAY ==
[2022-02-17 13:25] VITALS: BP 141/101; PULSE 98; RESP 16; TEMP 36.9; O2SAT 97; BMI 35.1
[2022-02-17 15:10] VITALS: BP 141/101; PULSE 98; RESP 16; TEMP 36.9; O2SAT 97; BMI 35.1
--- NOTE | 2022-02-17 15:15 | XR_ITS ---
FINAL REPORT CLINICAL HISTORY: FALL/INJURY, rt wrist pain COMPARISON: December 13, 2021 FINDINGS: 3 views of the right wrist were obtained. There is no acute fracture or dislocation. The joint spaces are intact. There is no soft tissue abnormality. IMPRESSION: No acute abnormality. Reviewed, Interpreted and Dictated by Duane Joseph III, MD Transcribed by Ramos Mcgovern Authenticated by Duane Joseph III, MD on 02/17/2022 04:22:30 PM [facility]
--- NOTE | 2022-02-17 15:15 | XR_ITS ---
FINAL REPORT CLINICAL HISTORY: FALL/INJURY, rt hand pain FINDINGS: RIGHT HAND: 3 views of the right hand were obtained. There is no acute fracture or dislocation. Visualized joint spaces are normally aligned. There is a calcification adjacent to the 2nd D IP joint. IMPRESSION: No acute bony abnormality. Reviewed, Interpreted and Dictated by Duane Joseph III, MD Transcribed by Ramos Mcgovern Authenticated by Duane Joseph III, MD on 02/17/2022 04:22:30 PM [facility]
--- NOTE | 2022-02-17 15:43 | HMH.EDUTC ---
[facility] [place] Disposition Clinical Impression: Wrist sprain Qualifiers: Encounter type: initial encounter Laterality: right Qualified Code(s): S63.501A - Unspecified sprain of right wrist, initial encounter Disposition: Home, Self-Care Condition on Discharge: Good Instructions: Wrist Sprain, DI for Wrist Sprain, How To Perform RICE (Rest, Ice, Compress, Elevate) Additional Instructions: *RICE, Rest the extremity, Ice 15-20 minutes 3-4 times daily, Compress- wear the ryan wrap as discussed as much as possible to help reduce swelling and pain, Elevate the extremity when at rest *Velcro wrist splint is for support and help control swelling, use it except in the shower. Be sure that is not to tight but not to loose either *Elevate when resting *Ibuprofen every 6-8 hours as needed for pain an inflammation. If need something more can take Tylenol in between doses of Ibuprofen to help Immediately follow up with your family doctor for new or worsening of symptoms, or no noticeable improvement over the next 3-5 days You may call back later this evening for the official reading of your xray Return if needed Follow up with your Family Doctor or Orthopedics if no improvement or any worsening of symptoms Referrals: Dionicio Burt [Primary Care Provider] - As needed Federico Balderrama MD [Staff Physician] - Time of Disposition: 15:50 Medical Decision Making - Junior Inquiry Pt receiving controlled substance: No Junior was queried for this patient: No Vital Signs: 02/17/22 13:25 02/17/22 15:10 02/17/22 15:52 Temperature 98.4 F 98.4 F 98.4 F Temperature Source Oral Oral Pulse Rate 98 H Pulse Rate [Left Radial] 98 H 98 H Respiratory Rate 16 16 16 Blood Pressure 141/101 H Blood Pressure [Left Arm] 141/101 H 141/101 H Blood Pressure Mean [Left Arm] 114 114 Blood Pressure Source [Left Arm] Automatic Cuff Automatic Cuff Blood Pressure Position [Left Arm] Sitting Sitting 02 Sat by Pulse Oximetry 97 97 Oxygen Delivery Method Room Air Room Air - Radiology Data #1 Image(s): Hand Image Reviewed: Yes I reviewed the patient's radiology image Preliminary Findings: No Fracture Seen #2 Image(s): Wrist Image Reviewed: Yes I reviewed the patient's radiology image No acute finding [facility] [place] HPI - General Stated complaint: R wrist pain Time Seen by Provider: 02/17/22 15:20 Mode of Arrival: Ambulatory Source of Information: Patient Limitations: No Limitations Description of Symptoms (Recalled from Triage Doc. by RN): PATIENT C/O INJURY TO RIGHT WRIST AFTER FALLING ON MONDAY HEENT Symptoms (Recalled from RN notes): No Resp Symptoms (Recalled from RN notes): No Skin Symptoms (Recalled from RN notes): No MS Symptoms (Recalled from RN notes): Yes Functional Status (Recalled from RN notes): WNL - History of Present Illness Provider Complaint: Patient states that she hurt her wrist about 2 weeks ago when she fell States that she has been watching it and it was doing a little better so she didnt get it checked but she fell again a few days ago and still having pain in the wrist so she came in to get it checked States that she is able to move it but hurts with certain movements and when she tries to hold something - Related Data Previous Rx's Medication Instructions Recorded estradiol 0.075 mg/24 hr 1 patch TOPICAL .semiweekly #24 03/01/21 semiweekly transdermal patch each estradiol 1 mg tablet 1 mg PO DAILY #30 tab 02/09/22 Allergies Allergy/AdvReac Type Severity Reaction Status Date / Time No Known Allergies Allergy Verified 12/13/21 17:21 - Worker's Comp Is this a Worker's Comp case?: No [facility] History - Hepatitis A Screen Attestation statement:: This patient has been screened for Hepatitis A risk factors. I have reviewed the patient's past medical history: Yes Medical History: Reports:: Anxiety Denies:: Cancer, Depression, Diabetes Mellitus Type 1, Diabetes Mellitus Type 2, Hypertension, MRSA, Seizure
[2022-02-17 15:52] VITALS: BP 141/101; PULSE 98; RESP 16; TEMP 36.9; O2SAT 97
== END 2022-02-17 16:08 | disposition home or self-care (01) ==
LOC: ER 13:28 → UTC 13:44
PROVIDERS: Emergency Provider Nurse Practitioner; PCP Family Medicine
DX: S63.501A Unspecified sprain of right wrist, initial encounter (principal); W01.0XXA Fall on same level from slipping, tripping and stumbling without subsequent striking against object, initial encounter; Y92.019 Unspecified place in single-family (private) house as the place of occurrence of the external cause
CPT/HCPCS: 73110; 73130; 99212; G0463

== ENCOUNTER 2022-08-15 08:01 | Emergency (ER) | payer OTHER, SELFPAY ==
[2022-08-15 08:05] VITALS: BP 132/90; PULSE 105; RESP 22; TEMP 37.1; O2SAT 95; BMI 36.1
--- NOTE | 2022-08-15 08:18 | EXP.UTC ---
Discharge Plan Disposition Patient Disposition: Home, Self-Care Condition: Good Prescriptions Prescriptions: New benzonatate [benzonatate] 100 mg capsule 100 mg PO TIDP PRN (Reason: Cough) Qty: 30 0RF oseltamivir [Tamiflu] 75 mg capsule 75 mg PO BID Qty: 10 0RF methylprednisolone 4 mg Tablets,Dose Pack 4 mg PO DIRECTED Qty: 21 0RF No Action estradiol 1 mg tablet 1 mg PO DAILY Referrals Follow up/Referrals: Dionicio Burt [Primary Care Provider] - See instructions Activity Restrictions/Add. Instructions Additional Instructions/Restrictions: Drink plenty of fluids. Take tylenol or ibuprofen for pain or fever. Take the medications as directed. Follow up with your regular doctor. GO TO THE ER FOR ANY WORSENING SYMPTOMS Don't start the oral steroids until tomorrow, since you had the shot here today. Clinical Impressions Clinical Impression: Influenza A Stand Alone Forms Stand Alone Forms: Work/School Release Instructions Patient Instructions: DI for Influenza -- Adult, Oseltamivir Discharge ED Provider: Ryan Rock [facility] General Stated complaint: congestion, body aches, no smell/taste Time Seen by Provider: 08/15/22 08:18 History of Present Illness Provider Complaint: She states that for the past 1 day she has had body aches, chills, fever, nausea, and she has felt bad. She has sinus congestion but no significant chest congestion. Related Data Home Medications Medication Instructions Recorded Confirmed estradiol 1 mg tablet 1 mg PO DAILY MENOPAUSE 08/15/22 08/15/22 Previous Rx's Medication Instructions Recorded benzonatate 100 mg capsule 100 mg PO TIDP PRN Cough #30 caps 08/15/22 methylprednisolone 4 mg tablets in 4 mg PO DIRECTED #21 tabs 08/15/22 a dose pack oseltamivir 75 mg capsule (Tamiflu) 75 mg PO BID #10 caps 08/15/22 Allergies Allergy/AdvReac Type Severity Reaction Status Date / Time No Known Allergies Allergy Verified 12/13/21 17:21 [facility] Surgical History History of hysterectomy History of tubal ligation Social History Smoking Status: Current every day smoker tobacco type: cigarettes packs per day: 1 second hand exposure: Yes alcohol intake: never substance use type: denies use current occupational status: other Travel in the last 8 weeks: None household members: spouse housing: house current occupation: [employer] current occupational exposures/hazards: No ROS Obtained: Yes All systems reviewed & no additional complaints except as documented Constitutional Constitutional: Denies chills, Reports fever(s) and Reports poor appetite Eyes Eyes: Denies eye discharge ENT Ears, Nose, Mouth, and Throat: Denies ear discharge, Reports otalgia, Denies hearing loss, Denies sinus pain and Reports sore throat Cardiovascular Cardiovascular: Denies chest pain and Denies dyspnea Respiratory Respiratory: Denies chest congestion, Reports cough and Denies dyspnea Gastrointestinal Gastrointestingal: Denies abdominal pain, diarrhea, nausea or vomiting Musculoskeletal Musculoskeletal: Denies arthralgias Integumentary/Breasts Skin/Breast: Denies rash Physical Exam General General appearance: alert and in no apparent distress Head Head exam: atraumatic, normocephalic and normal inspection Eye Eye exam: Present normal appearance, PERRL and EOMI ENT ENT exam: Present normal exam, normal oropharynx, mucous membranes moist, TM's normal bilaterally and normal external ear exam Neck Neck exam: Present normal inspection, full ROM and trachea midline; Absent meningismus or lymphadenopathy Chest Chest inspection: Present normal inspection and symmetric chest wall rise; Absent tenderness Respiratory Respiratory exam: Present normal lung sounds bilaterally; Absent respiratory distress Cardiovascular Cardiovascular
[2022-08-15 08:22] LABS: UTC Influenza A Antigen Positive (Negative)
[2022-08-15 08:23] LABS: UTC Influenza B Antigen Negative (Negative)
[2022-08-15 08:44] VITALS: BP 132/90; PULSE 105; RESP 22; TEMP 37.1; O2SAT 95
== END 2022-08-15 08:51 | disposition home or self-care (01) ==
PROVIDERS: Emergency Provider Nurse Practitioner Family; PCP Family Medicine
DX: J10.1 Influenza due to other identified influenza virus with other respiratory manifestations (principal); R50.9 Fever, unspecified; R05.9 Cough, unspecified; M79.0 Rheumatism, unspecified; R11.0 Nausea; R09.89 Other specified symptoms and signs involving the circulatory and respiratory systems; F17.210 Nicotine dependence, cigarettes, uncomplicated; Z79.890 Hormone replacement therapy; Z79.899 Other long term (current) drug therapy
CPT/HCPCS: 87804

== ENCOUNTER 2022-08-17 08:42 | Emergency (ER) | payer OTHER, SELFPAY ==
[2022-08-17 09:27] VITALS: BP 178/89; PULSE 76; RESP 18; TEMP 36.8; O2SAT 97; BMI 36.1
--- NOTE | 2022-08-17 09:36 | EXP.UTC ---
Discharge Plan Disposition Patient Disposition: Home, Self-Care Condition: Good Prescriptions Prescriptions: New guaifenesin [Mucinex] 600 mg tablet extended release 12hr 600 mg PO BID PRN (Reason: cough) Qty: 20 0RF No Action estradiol 1 mg tablet 1 mg PO DAILY benzonatate [benzonatate] 100 mg capsule 100 mg PO TIDP PRN (Reason: Cough) Qty: 30 0RF oseltamivir [Tamiflu] 75 mg capsule 75 mg PO BID Qty: 10 0RF methylprednisolone 4 mg Tablets,Dose Pack 4 mg PO DIRECTED Qty: 21 0RF Referrals Follow up/Referrals: Dionicio Burt [Primary Care Provider] - See instructions Activity Restrictions/Add. Instructions Additional Instructions/Restrictions: *Monitor Temp, Over the counter Motrin or Tylenol as directed/as needed Tylenol every 4 hours and Motrin every 6 hours (as long as your family doctor has told you that you can take it) for fever or pain. and straight to ER if unable to lower temp less than 101.0 after medication given *Warm salt water gargles may help to soothe the throat *Throat Lozenges? *Warm fluids like tea with honey may help to soothe the throat? *Sleep elevated *Humidifier/Vaporizer Follow up IMMEDIATELY for new or worsening symptoms or no Noticeable improvement over the next 48-72 hours. 911 for difficulty breathing or swallowing Clinical Impressions Clinical Impression: Influenza A Stand Alone Forms Stand Alone Forms: Work/School Release Instructions Patient Instructions: DI for Influenza -- Adult, Influenza Discharge ED Provider: Susan Weems [facility] [place] General Stated complaint: sob, flu + Mode of Arrival: Ambulatory Source of Information: Patient Limitations: No Limitations Time Seen by Provider: 08/17/22 09:37 Description of Symptoms (Recalled from Triage Doc. by RN): pt tested positive for flu monday and is c/o soa and nonproductive cough HEENT Symptoms (Recalled from RN notes): No Resp Symptoms (Recalled from RN notes): Yes Skin Symptoms (Recalled from RN notes): No MS Symptoms (Recalled from RN notes): No Functional Status (Recalled from RN notes): na History of Present Illness Provider Complaint: Patient states that she tested positive for the flu on Monday and was was suppose to go back to work tomorrow and dont think she can States that she is still having fevers, chills, and non productive cough so she came back in today to get checked Related Data Home Medications Medication Instructions Recorded Confirmed estradiol 1 mg tablet 1 mg PO DAILY MENOPAUSE 08/15/22 08/15/22 Previous Rx's Medication Instructions Recorded benzonatate 100 mg capsule 100 mg PO TIDP PRN Cough #30 caps 08/15/22 methylprednisolone 4 mg tablets in 4 mg PO DIRECTED #21 tabs 08/15/22 a dose pack oseltamivir 75 mg capsule (Tamiflu) 75 mg PO BID #10 caps 08/15/22 guaifenesin 600 mg tablet, 600 mg PO BID PRN cough #20 tabs 08/17/22 extended release 12 hr (Mucinex) Allergies Allergy/AdvReac Type Severity Reaction Status Date / Time No Known Allergies Allergy Verified 12/13/21 17:21 Worker's Comp Is this a Worker's Comp case?: No PFSH PFSH Surgical History History of hysterectomy History of tubal ligation Social History Smoking Status: Current every day smoker tobacco type: cigarettes packs per day: 1 second hand exposure: Yes alcohol intake: never substance use type: denies use current occupational status: other Travel in the last 8 weeks: None household members: spouse housing: house current occupation: [employer] current occupational exposures/hazards: No ROS Obtained: Yes All systems reviewed & no additional complaints except as documented and Yes Systems reviewed as appropriate & no additional complaints except as documented Constitutional Constitutional: Reports system reviewed and no addition
[2022-08-17 09:51] VITALS: BP 168/98; PULSE 78; RESP 18; TEMP 36.6; O2SAT 98
== END 2022-08-17 09:52 | disposition home or self-care (01) ==
PROVIDERS: Emergency Provider Nurse Practitioner; PCP Family Medicine
DX: J10.1 Influenza due to other identified influenza virus with other respiratory manifestations (principal); R50.9 Fever, unspecified; R06.02 Shortness of breath; R05.9 Cough, unspecified; F17.210 Nicotine dependence, cigarettes, uncomplicated; Z79.52 Long term (current) use of systemic steroids; Z79.899 Other long term (current) drug therapy; Z79.890 Hormone replacement therapy
CPT/HCPCS: 99213; G0463

== ENCOUNTER 2022-10-13 09:13 | Emergency (ER) | payer OTHER, SELFPAY ==
[2022-10-13 09:20] VITALS: BP 117/63; PULSE 74; RESP 21; TEMP 36.7; O2SAT 98; BMI 36.2
[2022-10-13 09:47] LABS: UTC Strep Screen (Rapid) Negative (Negative)
[2022-10-13 09:55] VITALS: BP 117/63; PULSE 74; RESP 21; TEMP 36.7; O2SAT 98
--- NOTE | 2022-10-13 09:55 | EXP.UTC ---
Discharge Plan Disposition Patient Disposition: Home, Self-Care Condition: Good Prescriptions Prescriptions: New cefdinir 300 mg capsule 300 mg PO BID Qty: 20 0RF No Action estradiol 0.1 mg/24 hr patch semiweekly 1 patch transdermal WEEKLY Label Comments: apply 1 PATCH topically twice a WEEK Referrals Follow up/Referrals: Dionicio Burt [Primary Care Provider] - See instructions Activity Restrictions/Add. Instructions Additional Instructions/Restrictions: *Monitor Temp, Over the counter Motrin or Tylenol as directed/as needed Tylenol every 4 hours and Motrin every 6 hours (as long as your family doctor has told you that you can take it) for fever or pain. and straight to ER if unable to lower temp less than 101.0 after medication given *Warm salt water gargles may help to soothe the throat *Throat Lozenges? *Warm fluids like tea with honey may help to soothe the throat? *Sleep elevated *Humidifier/Vaporizer Your throat swab was sent for culture. Those results are typically sent to your primary care. Be sure to follow up in 2-3 days with your family doctor/primary care physician if no improvement so they can review those result and treat if necessary. If you don?t have a primary care doctor, I recommend you get one but in the mean time, you will have to return to a walk in clinic Follow up IMMEDIATELY for new or worsening symptoms or no Noticeable improvement over the next 48-72 hours. 911 for difficulty breathing or swallowing Clinical Impressions Clinical Impression: Pharyngitis Instructions Patient Instructions: Sore Throat Discharge ED Provider: Susan Weems [facility] General Stated complaint: Blisters in throat Mode of Arrival: Ambulatory Source of Information: Patient Limitations: No Limitations Time Seen by Provider: 10/13/22 09:55 Description of Symptoms (Recalled from Triage Doc. by RN): PATIENT C/O SORE THROAT, CONGESTION, AND FEELS LIKE SOMETHING CRAWLING IN EARS SINCE YESTERDAY HEENT Symptoms (Recalled from RN notes): Yes Resp Symptoms (Recalled from RN notes): No Skin Symptoms (Recalled from RN notes): No MS Symptoms (Recalled from RN notes): No Functional Status (Recalled from RN notes): WNL History of Present Illness Provider Complaint: Patient states that she has been having sore throat, pain and pressure in her ears and blisters on her throat States that she noticed it this morning States that she has been gargling salt water but hasnt helped much Related Data Home Medications Medication Instructions Recorded Confirmed estradiol 0.1 mg/24 hr semiweekly 1 patch transdermal WEEKLY 10/13/22 10/13/22 transdermal patch Supplement Previous Rx's Medication Instructions Recorded cefdinir 300 mg capsule 300 mg PO BID #20 caps 10/13/22 Allergies Allergy/AdvReac Type Severity Reaction Status Date / Time No Known Allergies Allergy Verified 12/13/21 17:21 Worker's Comp Is this a Worker's Comp case?: No [facility] Disclaimer: The information contained in this section may have been updated after the patient was seen, as this information can be updated by other users. Surgical History History of hysterectomy History of tubal ligation Social History (Updated 10/13/22 @ 09:32 by Marlene Villavicencio RN) Smoking Status: Current every day smoker tobacco type: cigarettes packs per day: 1 second hand exposure: Yes alcohol intake: never substance use type: denies use current occupational status: other Travel in the last 8 weeks: None household members: spouse housing: house current occupation: [employer] current occupational exposures/hazards: No ROS Obtained: Yes All systems reviewed & no additional complaints except as documented and Yes Systems reviewed as appropriate & no additional complaints except as documented Constitutional Constitutional: Reports system rev
== END 2022-10-13 10:04 | disposition home or self-care (01) ==
PROVIDERS: Emergency Provider Nurse Practitioner; PCP Family Medicine
DX: J02.9 Acute pharyngitis, unspecified (principal)
CPT/HCPCS: 87880; 99212; G0463

== ENCOUNTER → 2022-11-18 13:22 | Outpatient (CLI) | payer OTHER, SELFPAY ==
[2022-11-18 15:10] LABS: Free Thyroxine Index 2.6 ug/dL (5.93-13.13); T4 (Thyroxine) 9.5 ug/dl (5.53-11.0); Triiodothryronine (T3) Uptake 27 % (23.5-40.5)
[2022-11-18 15:24] LABS: Thyroid Stimulating Hormone 1.81 uIU/mL (0.465-4.68)
[2022-11-20 10:54] LABS: Estradiol 64.2 pg/mL (.); FSH 7.4 mIU/mL (.); LH 5.1 mIU/mL (.)
== END ==
PROVIDERS: PCP Family Medicine; Visit Provider Nurse Practitioner Obstetrics & Gynecology
DX: R53.83 Other fatigue (principal); L65.9 Nonscarring hair loss, unspecified; R63.5 Abnormal weight gain
CPT/HCPCS: 36415; 82670; 83001; 83002; 84436; 84443; 84479

== ENCOUNTER 2022-12-14 19:15 | Emergency (ER) | payer OTHER, SELFPAY ==
[2022-12-14 19:31] VITALS: BP 138/94; PULSE 96; RESP 18; TEMP 36.8; O2SAT 97; BMI 35.9
--- NOTE | 2022-12-14 19:49 | XR_ITS ---
PROCEDURE INFORMATION: Exam: XR Right Hand Exam date and time: 12/14/2022 7:52 PM Age: 52 years old Clinical indication: Swelling; Right; Patient HX: Swollen hand, possible bug bite per patient. ; Additional info: Wound of unknown origin TECHNIQUE: Imaging protocol: Radiologic exam of the right hand. Views: 3 or more views. COMPARISON: CR XR HAND RT MIN 3V 02/17/2022 3:25 PM FINDINGS: Bones/joints: No acute fracture or dislocation. Soft tissues: Normal. IMPRESSION: No acute findings.
--- NOTE | 2022-12-14 19:58 | PC.NURSE ---
Rechecked pt condition. No needs voiced at this time. Call light within reach.
[2022-12-14 20:02] LABS: Basophils # 0.2 K/mm3 (0-0.2); Basophils % 1.1 % (0.1-2.0); Chloride 101 mmol/L (98-107); Eosinophils # 0.3 K/mm3 (0.0-0.4); Eosinophils % 1.9 % (0.1-12.0); Hematocrit 45.3 % (37.0-47.0); Hemoglobin 14.9 g/dL (12.2-16.2); Lymphocytes # 3.2 K/mm3 (0.7-4.5); Lymphocytes % 18.3 % (10-50); Mean Corpuscular Hemoglobin 30.6 pg (27.0-31.2); Mean Corpuscular Volume 92.9 fl (81-99); Mean Platelet Volume 7.9 fl (7.4-10.4); Monocytes # 0.8 K/mm3 (0.1-1.0); Monocytes % 4.4 % (1.7-9.3); Neutrophils # 12.9 K/mm3 (1.8-7.8); Neutrophils % 74.1 % (37.0-80.0); Platelet Count 402 K/mm3 (142-424); Red Blood Count 4.87 M/mm3 (4.20-5.40); Red Cell Distribution Width 12.8 % (11.5-17.5); Sodium 135 mmol/L (136-145); White Blood Count 17.4 K/mm3 (4.8-10.8)
[2022-12-14 20:03] LABS: Potassium 3.7 mmoL/L (3.5-5.1)
[2022-12-14 20:05] LABS: Alanine Aminotransferase 20 U/L (12-78); Albumin Level 4.3 g/dl (3.5-5.0); Alkaline Phosphatase 69 U/L (38-126); Aspartate Amino Transferase 25 U/L (14-36); Bilirubin,Total 0.4 mg/dl (0.2-1.3); Blood Urea Nitrogen 9 mg/dl (7-17); Creatinine Clearance Estimated 126 mL/min (50-200); Estimated Glomerular Filt Rate 88 ml/min (>60); GFR (African American) 106 ML/MIN (>60)
[2022-12-14 20:06] LABS: Calcium 9.3 mg/dl (8.4-10.2); Carbon Dioxide 27 mmol/L (22.0-30.0); Glucose 144 mg/dl (74-100); Total Protein,Serum 7.5 g/dl (6.3-8.2)
[2022-12-14 20:16] LABS: Anion Gap 10.7 mEq/L (5-15)
[2022-12-14 20:22] LABS: MANUAL DIFFERENTIAL MANUAL DIFFERENTIAL (MANUAL DIFF)
--- NOTE | 2022-12-14 20:49 | PC.NURSE ---
Pt continues to rest in bed. No needs voiced.
--- NOTE | 2022-12-14 20:49 | HMH.EDUPEXT ---
Discharge Plan Disposition Patient Disposition: Home, Self-Care Prescriptions Prescriptions: New prednisone [prednisone] 20 mg tablet 20 mg PO BID Qty: 10 0RF cephalexin [cephalexin] 500 mg capsule 500 mg PO TID Qty: 30 0RF No Action estradiol 1 mg tablet 1 mg PO DAILY estradiol 0.1 mg/24 hr patch semiweekly 1 patch transdermal WEEKLY Label Comments: apply 1 PATCH topically twice a WEEK Referrals Follow up/Referrals: Dionicio Burt MD [Primary Care Provider] - See instructions Clinical Impressions Clinical Impression: Localized swelling on right hand Instructions Patient Instructions: DI for Hand Pain Discharge ED Provider: Von (ED[facility] Upper Extremity HPI General Chief Complaint: Extremity Injury, Upper Stated Complaint: Rhand possible bitten by something Time Seen by Provider: 12/14/22 20:50 Mode of Arrival: Ambulatory Source of Information: Patient Limitations: No Limitations Description of Symptoms (Recalled from ER Triage Doc. by RN): Patient arrives to er via pov. C/O redness, pain, warmth and swelling on pad below pid joint on right hand. Patient denies known injury. States she noticed the pain at 1430 this afternoon but swelling began one hour ago. History of Present Illness HPI narrative: swelling on palmar aspect of rt hand at 2/3 fingers at [facility] jts - no trauma /rash or insect bite started this pm - no other c/o complaint: injury to: right and hand Onset (ago): hour(s) Other Extremity Injury: Right: hand Handedness: right Place: home Severity: moderate Context: other (unk) Related Data Home Medications Medication Instructions Recorded Confirmed estradiol 0.1 mg/24 hr semiweekly 1 patch transdermal WEEKLY 10/13/22 12/14/22 transdermal patch Supplement estradiol 1 mg tablet 1 mg PO DAILY Supplement 11/17/22 12/14/22 Previous Rx's Medication Instructions Recorded cephalexin 500 mg capsule 500 mg PO TID #30 caps 12/14/22 prednisone 20 mg tablet 20 mg PO BID #10 tabs 12/14/22 Allergies Allergy/AdvReac Type Severity Reaction Status Date / Time No Known Allergies Allergy Verified 11/17/22 13:57 [facility] Disclaimer: The information contained in this section may have been updated after the patient was seen, as this information can be updated by other users. Surgical History History of hysterectomy History of tubal ligation Family History (Updated 11/17/22 @ 14:06 by Ophelia Lucio CMA) Other Asthma Diabetes Hypertension Stroke Substance abuse Social History Smoking Status: Current every day smoker tobacco type: cigarettes packs per day: 1 second hand exposure: Yes alcohol intake: never substance use type: denies use current occupational status: other Travel in the last 8 weeks: None household members: spouse housing: house current occupation: [email or web address] current occupational exposures/hazards: No ROS Obtained: Yes All systems reviewed & no additional complaints except as documented Physical Exam General General appearance: alert Head Head exam: normocephalic Eye Eye exam: Present PERRL and EOMI ENT ENT exam: Present mucous membranes moist Neck Neck exam: Present trachea midline Respiratory Respiratory exam: Absent respiratory distress Cardiovascular Cardiovascular exam: Present regular rate Expanded Upper Extremity Exam Right: Hand exam: Present full ROM, tenderness, swelling and other (no skin lesion or bite ); Absent ecchymosis or erythema Neuromotor exam: Normal wrist extension Vascular exam: Normal capillary refill and radial pulse Neurological Exam Neurological exam: Present alert and CN II-XII intact Psychiatric Psychiatric exam: Present normal affect Skin Skin exam: Absent rash Medical Decision Making Medical Records Medical records reviewed: Yes
[2022-12-14 20:59] LABS: Eosinophils % 1 % (0-3); Lymphocytes % 20 % (10-50); Monocytes % 3 % (2-9); Neutrophils % 76 % (42-76); Platelet Estimate Normal; RBC Morphology Normal; Total Cells Counted 100
[2022-12-14 21:08] LABS: Albumin/Globulin Ratio 1.3 (1.1-1.8); Globulin 3.2 g/dL (1.3-3.2)
[2022-12-14 21:09] LABS: C-Reactive Protein 15.5 mg/L (0-4)
[2022-12-14 21:28] LABS: Procalcitonin < 0.030 ng/mL (0.0-2.0)
[2022-12-14 21:40] LABS: Erythrocyte Sedimentation Rate 13 mm/hr (0-30)
[2022-12-14 21:41] VITALS: BP 130/90; PULSE 88; RESP 18; TEMP 36.6; O2SAT 98
== END 2022-12-14 21:46 | disposition home or self-care (01) ==
PROVIDERS: Emergency Provider Emergency Medicine; PCP Family Medicine
DX: R60.0 Localized edema (principal); F17.210 Nicotine dependence, cigarettes, uncomplicated; Z90.710 Acquired absence of both cervix and uterus; Z98.51 Tubal ligation status; Z83.3 Family history of diabetes mellitus; Z82.49 Family history of ischemic heart disease and other diseases of the circulatory system; Z82.3 Family history of stroke; Z82.5 Family history of asthma and other chronic lower respiratory diseases; Z81.4 Family history of other substance abuse and dependence
CPT/HCPCS: 73130; 80053; 84145; 84550; 85007; 85025; 85651; 86140; 99285

== ENCOUNTER 2023-01-03 11:28 | Emergency (ER) | payer OTHER, SELFPAY ==
--- NOTE | 2023-01-03 12:59 | EXP.UTC ---
Discharge Plan Disposition Patient Disposition: Home, Self-Care Condition: Good Prescriptions Prescriptions: New benzonatate [benzonatate] 100 mg capsule 100 mg PO TIDP PRN (Reason: Cough) Qty: 30 0RF amoxicillin-pot clavulanate 875-125 mg Tablet 1 tab PO Q12H Qty: 20 0RF methylprednisolone 4 mg Tablets,Dose Pack 4 mg PO DIRECTED Qty: 21 0RF No Action estradiol 1 mg tablet 1 mg PO DAILY estradiol 0.1 mg/24 hr patch semiweekly 1 patch transdermal WEEKLY Label Comments: apply 1 PATCH topically twice a WEEK Referrals Follow up/Referrals: Dionicio Burt MD [Primary Care Provider] - See instructions Activity Restrictions/Add. Instructions Additional Instructions/Restrictions: Drink plenty of fluids. Take tylenol or ibuprofen for pain or fever. Take the medications as directed. Follow up with your regular doctor. GO TO THE ER FOR ANY WORSENING SYMPTOMS Throw your tooth brush away and get a new one. Clinical Impressions Clinical Impression: Sinusitis, Pharyngitis Stand Alone Forms Stand Alone Forms: Work/School Release Instructions Patient Instructions: DI for Pharyngitis/Tonsillopharyngitis -- Adult, DI for Sinusitis Discharge ED Provider: Ryan Rock [facility] [place] General Stated complaint: Headache, congestion, drainage Time Seen by Provider: 01/03/23 12:58 History of Present Illness Provider Complaint: She states that for the past 2 days she has had sore throat, chills, body aches and low grade fever. Related Data Home Medications Medication Instructions Recorded Confirmed estradiol 0.1 mg/24 hr semiweekly 1 patch transdermal WEEKLY 10/13/22 12/14/22 transdermal patch Supplement estradiol 1 mg tablet 1 mg PO DAILY Supplement 11/17/22 12/14/22 Previous Rx's Medication Instructions Recorded amoxicillin 875 mg-potassium 1 tab PO Q12H #20 tabs 01/03/23 clavulanate 125 mg tablet benzonatate 100 mg capsule 100 mg PO TIDP PRN Cough #30 caps 01/03/23 methylprednisolone 4 mg tablets in 4 mg PO DIRECTED #21 tabs 01/03/23 a dose pack Allergies Allergy/AdvReac Type Severity Reaction Status Date / Time No Known Allergies Allergy Verified 01/03/23 13:22 [facility] Disclaimer: The information contained in this section may have been updated after the patient was seen, as this information can be updated by other users. Surgical History History of hysterectomy History of tubal ligation Family History Other Asthma Diabetes Hypertension Stroke Substance abuse Social History Smoking Status: Current every day smoker tobacco type: cigarettes packs per day: 1 second hand exposure: Yes alcohol intake: never substance use type: denies use current occupational status: other Travel in the last 8 weeks: None household members: spouse housing: house current occupation: [employer] current occupational exposures/hazards: No ROS Obtained: Yes All systems reviewed & no additional complaints except as documented Constitutional Constitutional: Reports poor appetite Eyes Eyes: Reports system reviewed and no additional complaints, except as documented ENT Ears, Nose, Mouth, and Throat: Reports as per HPI Cardiovascular Cardiovascular: Reports system reviewed and no additional complaints, except as documented and Denies chest pain Respiratory Respiratory: Denies shortness of breath, Denies chest congestion, Reports cough, Denies stridor and Denies wheezing Gastrointestinal Gastrointestingal: Reports system reviewed and no additional complaints, except as documented; Denies abdominal pain, diarrhea or vomiting Musculoskeletal Musculoskeletal: Reports system reviewed and no additional complaints, except as documented and Denies arthralgias Integumentary/Breasts Skin/
[2023-01-03 13:00] VITALS: BP 172/95; PULSE 101; RESP 20; TEMP 36.8; O2SAT 98; BMI 36.1
[2023-01-03 13:56] VITALS: BP 172/95; PULSE 101; RESP 20; TEMP 36.8; O2SAT 95
== END 2023-01-03 13:56 | disposition home or self-care (01) ==
PROVIDERS: Emergency Provider Nurse Practitioner Family; PCP Family Medicine
DX: J01.90 Acute sinusitis, unspecified (principal); J02.9 Acute pharyngitis, unspecified; R50.9 Fever, unspecified; F17.210 Nicotine dependence, cigarettes, uncomplicated
CPT/HCPCS: 99212; 99214; G0463

== ENCOUNTER 2023-10-12 12:15 | Emergency (ER) | payer SELFPAY ==
[2023-10-12 12:45] VITALS: BP 145/82; PULSE 107; RESP 20; TEMP 36.9; O2SAT 97; BMI 36.1
--- NOTE | 2023-10-12 13:13 | ED_ITS ---
Discharge Plan Disposition Patient Disposition: Home, Self-Care Condition: Good Prescriptions Prescriptions: New amoxicillin 875 mg tablet 875 mg PO Q12H Qty: 20 0RF fluticasone propionate [Flonase Allergy Relief] 50 mcg/actuation spray,suspension 1 - 2 spray intranasal DAILY Qty: 16 0RF Rx Instructions: administer into each nostril daily Referrals Follow up/Referrals: Dionicio Burt MD [Primary Care Provider] - See instructions Activity Restrictions/Add. Instructions Additional Instructions/Restrictions: *Monitor Temp, Over the counter Motrin or Tylenol as directed/as needed Tylenol every 4 hours and Motrin every 6 hours (as long as your family doctor has told you that you can take it) for fever or pain. and straight to ER if unable to lower temp less than 101.0 after medication given *Warm salt water gargles may help to soothe the throat *Throat Lozenges? *Warm fluids like tea with honey may help to soothe the throat? *Sleep elevated *Humidifier/Vaporizer *Your throat swab was sent for culture. Those results are typically sent to your primary care. Be sure to follow up in 2-3 days with your family doctor/primary care physician if no improvement so they can review those result and treat if necessary. If you don?t have a primary care doctor, I recommend you get one but in the mean time, you will have to return to a walk in clinic Follow up IMMEDIATELY for new or worsening symptoms or no Noticeable improvement over the next 48-72 hours. 911 for difficulty breathing or swallowing You were tested for today for COVID19 your test result should be back in the next 24 hours, you may check your results on the [facility] if your COVID test is positive you must Quarantine for 5 days Clinical Impressions Clinical Impression: Otitis media Qualifiers: Otitis media type: unspecified Laterality: right Qualified Code(s): H66.91 - Otitis media, unspecified, right ear Instructions Patient Instructions: Middle Ear Infection Discharge ED Provider: Susan Weems [facility] [place] HPI General Stated complaint: sore throat,body aches Mode of Arrival: Ambulatory Source of Information: Patient Limitations: No Limitations Time Seen by Provider: 10/12/23 13:13 Description of Symptoms (Recalled from Triage Doc. by RN): PATIENT C/O BODY ACHES AND SORE THROAT X 2 DAYS HEENT Symptoms (Recalled from RN notes): Yes Resp Symptoms (Recalled from RN notes): No Skin Symptoms (Recalled from RN notes): No MS Symptoms (Recalled from RN notes): No Functional Status (Recalled from RN notes): WNL History of Present Illness Provider Complaint: Patient states that for the last couple of days she has been having sore throat, pain and pressure in her ears, nasal congestion and feeling achy all over States that today she was not feeling any better so she came in to get checked Related Data Previous Rx's Medication Instructions Recorded amoxicillin 875 mg tablet 875 mg PO Q12H #20 tabs 10/12/23 fluticasone propionate 50 1 - 2 spray intranasal DAILY #16 10/12/23 mcg/actuation nasal grams spray,suspension (Flonase Allergy Relief) Allergies Allergy/AdvReac Type Severity Reaction Status Date / Time No Known Allergies Allergy Verified 01/03/23 13:22 Worker's Comp Is this a Worker's Comp case?: No [facility] Disclaimer: The information contained in this section may have been updated after the patient was seen, as this information can be updated by other users. Surgical History History of hysterectomy History of tubal ligation Family History Other Asthma Diabetes Hypertension Stroke Substance abuse Social History Smoking Status: Current every day smoker tobacco type: cigarettes packs per day: 1 second hand exposure: Yes alcohol intake: never substance use type: denies use current occupational status: other Travel in the last 8 weeks: None household members: spouse housing: house current occupation: [employer] current occupational exposures/hazards: No ROS Obtained: Yes All systems reviewed & no additional complaints except as documented and Yes Systems reviewed as appropriate & no additional complaints except as documented Constitutional Constitutional: Reports system reviewed and no additional complaints, except as documented, Reports as per HPI, Reports body ache and Reports headache(s) ENT Ears, Nose, Mouth, and Throat: Reports system reviewed and no additional complaints, except as documented, Reports as per HPI, Reports otalgia, Reports headache(s), Reports nasal congestion, Reports sinus pressure and Reports sore throat Cardiovascular Cardiovascular: Reports system reviewed and no additional complaints, except as documented and Reports as per HPI Respiratory Respiratory: Reports system reviewed and no additional complaints, except as documented and Reports as per HPI Gastrointestinal Gastrointestingal: Reports system reviewed and no additional complaints, except as documented and as per HPI Neurologic Neurologic: Reports headache(s) Physical Exam General General appearance: alert and in no apparent distress ENT ENT exam: Present mucous membranes moist Expanded ENT Exam TM/Canal exam: Right TM: erythema and Bilateral TM: bulging Nose exam: Absent sinus tenderness Throat exam: Present tonsillar erythema Chest Chest inspection: Present normal inspection and symmetric chest wall rise Respiratory Respiratory exam: Present normal lung sounds bilaterally; Absent respiratory distress or wheezes Cardiovascular Cardiovascular exam: Present regular rate, normal rhythm and normal heart sounds Abdominal Exam Abdominal exam: Present soft and normal bowel sounds; Absent distention or tenderness Neurological Exam Neurological exam: Present alert, oriented X3 and normal gait Medical Decision Making Junior Inquiry Pt receiving controlled substance: No Junior was queried for this patient: No Vital Signs: 10/12/23 12:45 Temperature 98.5 F Temperature Source Oral Pulse Rate [Right Brachial] 107 H Respiratory Rate 20 Blood Pressure [Right Arm] 145/82 H Blood Pressure Mean [Right Arm] 103 Blood Pressure Source [Right Arm] Automatic Cuff Blood Pressure Position [Right Arm] Sitting 02 Sat by Pulse Oximetry 97 Oxygen Delivery Method Room Air Lab Data Lab results reviewed: Yes I reviewed the patient's lab results.
[2023-10-12 13:22] LABS: UTC Strep Screen (Rapid) Negative (Negative)
[2023-10-12 13:23] VITALS: BP 145/82; PULSE 107; RESP 20; TEMP 36.9; O2SAT 97
[2023-10-12 13:23] LABS: UTC Influenza A Antigen Negative (Negative); UTC Influenza B Antigen Negative (Negative)
== END 2023-10-12 13:28 | disposition home or self-care (01) ==
PROVIDERS: Emergency Provider Nurse Practitioner; PCP Family Medicine
DX: H66.91 Otitis media, unspecified, right ear (principal); R07.0 Pain in throat; R09.81 Nasal congestion; R51.9 Headache, unspecified; M79.18 Myalgia, other site; F17.210 Nicotine dependence, cigarettes, uncomplicated
CPT/HCPCS: 87635; 87804; 87880; 99212; 99214; G0463

== ENCOUNTER 2024-06-11 08:04 | Emergency (ER) | payer SELFPAY ==
[2024-06-11 08:15] VITALS: BP 99/48; PULSE 97; RESP 20; TEMP 36.8; O2SAT 97; BMI 33.0
--- NOTE | 2024-06-11 08:36 | EXP.UTC ---
Discharge Plan Disposition Patient Disposition: Home, Self-Care Condition: Good Prescriptions Prescriptions: New azithromycin [Zithromax Z-Jason] 250 mg tablet See Rx Instructions .ROUTE .COMPLEX 5 Days Qty: 6 0RF Rx Instructions: For 250 mg dose pack: take 500 mg today (day 1), then 250 mg for 4 days (days 2-5) benzonatate 100 mg capsule 100 mg PO TID PRN (Reason: cough) Qty: 30 0RF methylprednisolone [Medrol (Jason)] 4 mg tablets,dose pack See Rx Instructions .Route .COMPLEX 6 Days Qty: 21 0RF Rx Instructions: taper pack; Referrals Follow up/Referrals: Provider,Referral, MD [Primary Care Provider] - See instructions Activity Restrictions/Add. Instructions Additional Instructions/Restrictions: Start antibiotic today. Be sure to complete entire prescription even if feeling better Monitor temp. Tylenol every 4 hours as needed and / or ibuprofen every 6 hours as needed ( As long as your primary care physician has told you that it ok to take both. For fever/aches/pains ER if no less than 101 despite Tylenol or Motrin Humidifier/vaporizer or hot steamy shower *Tessalon Perles will not cause drowsiness but use at bedtime to help stop cough so that you may get some rest. *Start steroid tomorrow. Helps with inflammation therefore, cough and wheezing. Follow directions on the package. Reviewed side effects. Patient reports taking them before. Follow up IMMEDIATELY for new or worsening of symptoms OR no noticeable improvement over the next 48-72 hours. 911 immediately for any life threatening symptoms such as chest pain or difficulty breathing Clinical Impressions Clinical Impression: Sinusitis Instructions Patient Instructions: Sinusitis, DI for Sinusitis Print Language Print Language: Sami Discharge ED Provider: Susan Weems [facility] [place] HPI General Stated complaint: head congestion Mode of Arrival: Ambulatory Source of Information: Patient Limitations: No Limitations Time Seen by Provider: 06/11/24 08:38 Description of Symptoms (Recalled from Triage Doc. by RN): PATIENT C/O COUGH AND CONGESTION X 6 DAYS HEENT Symptoms (Recalled from RN notes): Yes Resp Symptoms (Recalled from RN notes): Yes Skin Symptoms (Recalled from RN notes): No MS Symptoms (Recalled from RN notes): No Functional Status (Recalled from RN notes): WNL History of Present Illness Provider Complaint: Patient states that she has been having sinus pain and pressure for about a week that has not got any better and now having a cough So today she came in to get checked Related Data Previous Rx's ?Medication ?Instructions ?Recorded azithromycin 250 mg tablet See Rx Instructions PO .COMPLEX 5 06/11/24 (Zithromax Z-Jason) days #6 tabs benzonatate 100 mg capsule 100 mg PO TID PRN cough #30 caps 06/11/24 methylprednisolone 4 mg tablets in See Rx Instructions .Route 06/11/24 a dose pack (Medrol (Jason)) .COMPLEX 6 days #21 tabs Allergies Allergy/AdvReac Type Severity Reaction Status Date / Time No Known Allergies Allergy Verified 01/03/23 13:22 Worker's Comp Is this a Worker's Comp case?: No [facility] Disclaimer: The information contained in this section may have been updated after the patient was seen, as this information can be updated by other users. Surgical History History of hysterectomy History of tubal ligation Family History Other Asthma Diabetes Hypertension Stroke Substance abuse Social History Smoking Status: Current every day smoker tobacco type: cigarettes packs per day: 1 second hand exposure: Yes alcohol intake: never substance use type: denies use current occupational status: other Travel in the last 8 weeks: None household members: spouse housing: house current occupati
[2024-06-11 08:57] VITALS: BP 99/48; PULSE 97; RESP 20; TEMP 36.8; O2SAT 97
== END 2024-06-11 09:03 | disposition home or self-care (01) ==
PROVIDERS: Emergency Provider Nurse Practitioner
DX: J01.90 Acute sinusitis, unspecified (principal); R05.9 Cough, unspecified
CPT/HCPCS: 96372; 99212; 99214; G0463; J2919

== ENCOUNTER 2024-12-12 07:34 | Outpatient (CLI) | payer OTHER, SELFPAY ==
[2024-12-12 08:04] LABS: Basophils # 0.1 K/mm3 (0-0.2); Basophils % 0.6 % (0.1-2.0); Eosinophils # 0.2 K/mm3 (0.0-0.4); Eosinophils % 1.3 % (0.1-12.0); Hematocrit 45.1 % (37.0-47.0); Hemoglobin 15.3 g/dL (12.2-16.2); Lymphocytes # 2.1 K/mm3 (0.7-4.5); Lymphocytes % 17.5 % (10-50); Mean Corpuscular HGB Conc 33.9 g/dL (31.8-35.4); Mean Corpuscular Hemoglobin 30.3 pg (27.0-31.2); Mean Corpuscular Volume 89.3 fl (81-99); Mean Platelet Volume 9.6 fl (7.4-10.4); Monocytes # 0.7 K/mm3 (0.1-1.0); Monocytes % 6.3 % (1.7-9.3); Neutrophils # 8.7 K/mm3 (1.8-7.8); Platelet Count 334 K/mm3 (142-424); Red Blood Count 5.05 M/mm3 (4.20-5.40); Red Cell Distribution Width 12.3 % (11.5-17.5); White Blood Count 11.8 K/mm3 (4.8-10.8)
[2024-12-12 08:33] LABS: Alanine Aminotransferase 22 U/L (12-78); Albumin Level 4.5 g/dl (3.5-5.0); Albumin/Globulin Ratio 2.1 (1.1-1.8); Alkaline Phosphatase 102 U/L (38-126); Aspartate Amino Transferase 23 U/L (14-36); Bilirubin,Total 0.5 mg/dl (0.2-1.3); Blood Urea Nitrogen 12 mg/dl (7-17); Calcium 10.2 mg/dl (8.4-10.2); Carbon Dioxide 28 mmol/L (22.0-30.0); Chloride 105 mmol/L (98-107); Chol/HDL Ratio 7.5 (1-3.5); Cholesterol 224 mg/dl (140-200); Estimated Glomerular Filt Rate 128 ml/min (>60); GFR (African American) 155 ML/MIN (>60); Globulin 2.1 g/dL (1.3-3.2); Glucose 171 mg/dl (74-100); HDL Cholesterol 30 mg/dl (40-60); Potassium 4.8 mmoL/L (3.5-5.1); Total Protein,Serum 6.6 g/dl (6.3-8.2); Triglycerides 186 mg/dl (30-150); VLDL Cholesterol 37 mg/dL (0-40)
[2024-12-12 08:44] LABS: Anion Gap 8.8 mEq/L (5-15); Direct LDL Cholesterol 149.11 mg/dL (100-129); Sodium 137 mmol/L (136-145)
[2024-12-12 08:49] LABS: 25-OH Vitamin D, Total 34.3 ng/mL (30-100)
[2024-12-12 08:52] LABS: Free Thyroxine Index 2.8 ug/dL (5.93-13.13); T4 (Thyroxine) 9.4 ug/dl (5.53-11.0); Triiodothryronine (T3) Uptake 30 % (23.5-40.5)
[2024-12-12 09:06] LABS: Thyroid Stimulating Hormone 0.54 uIU/mL (0.465-4.68)
[2024-12-12 09:22] LABS: Vitamin B12 813 pg/mL (239-931)
[2024-12-12 09:50] LABS: Folate > 20.00 ng/mL
[2024-12-13 09:12] LABS: Estradiol 7.4 pg/mL (.); FSH 53.7 mIU/mL (.); LH 24.5 mIU/mL (.)
== END 2024-12-12 23:59 | disposition home or self-care (01) ==
LOC: LAB 07:35
PROVIDERS: PCP Family Medicine; Visit Provider Nurse Practitioner Obstetrics & Gynecology
DX: N95.1 Menopausal and female climacteric states (principal); Z68.38 Body mass index [BMI] 38.0-38.9, adult; E66.9 Obesity, unspecified
CPT/HCPCS: 36415; 80053; 80061; 82306; 82607; 82670; 82746; 83001; 83002; 84436; 84443; 84479; 85025

== ENCOUNTER 2025-01-14 12:45 | Outpatient (CLI) | payer OTHER, SELFPAY ==
--- NOTE | 2025-01-14 12:48 | MM_ITS ---
PROCEDURE INFORMATION: Exam: MG Bilateral Screening 3D Mammography Exam date and time: 01/14/2025 1:03 PM Age: 54 years old Clinical indication: Screening exam. TECHNIQUE: Imaging protocol: Bilateral Screening tomosynthesis and 2D mammography including computer-aided detection (CAD) when performed. COMPARISON: 1. MG DMSB DIG MAMM-SCREEN ANA 12/30/2013 4:27 PM 2. MG DMSB DIGITAL MAMM-SCREEN BILATERAL 05/10/2012 1:41 PM FINDINGS: MAMMOGRAPHY: Breast composition: There are scattered areas of fibroglandular density. Mass: Questioned 0.7 cm mass right lower outer quadrant middle depth. Architectural distortion: None. Calcifications: No suspicious calcifications. Asymmetric density: None. Skin thickening: None. Axillary adenopathy: None. IMPRESSION: Questioned subcentimeter right breast mass.Recommend right breast diagnostic mammogram including spot compression views of the right breast in the CC and MLO projections, a full 90 degree lateral view, and right breast ultrasound for further evaluation. ASSESSMENT: BI-RADS Category 0: Incomplete- Need Additional Imaging Evaluation.
== END 2025-01-14 23:59 | disposition home or self-care (01) ==
LOC: RAD 12:46
PROVIDERS: PCP Nurse Practitioner Obstetrics & Gynecology; Visit Provider Nurse Practitioner Obstetrics & Gynecology
DX: Z12.31 Encounter for screening mammogram for malignant neoplasm of breast (principal)
CPT/HCPCS: 77063; 77067

== ENCOUNTER 2025-03-27 13:16 | Outpatient (CLI) | payer OTHER, SELFPAY ==
--- NOTE | 2025-03-27 13:00 | MM_ITS ---
PROCEDURE INFORMATION: Exam: US Right Breast, Complete MG Right Diagnostic Breast Tomosynthesis MG Right Diagnostic Mammography Exam date and time: 03/27/2025 1:19 PM Age: 54 years old Clinical indication: Patient recalled on the basis of a screening mammogram for further evaluation; Right breast; mass TECHNIQUE: Imaging protocol: Complete ultrasound of all four quadrants of the right breast and the retroareolar regions, including ultrasound of the axilla when performed. Right Diagnostic tomosynthesis and 2D mammography including computer-aided detection (CAD) when performed. Unilateral or bilateral exam. Right Diagnostic mammography including computer-aided detection (CAD) when performed. Unilateral exam. COMPARISON: 1. MG MM DIG SCREENING MAMM BI W/CAD 01/14/2025 1:03 PM 2. US BREAST RT COMPLETE 03/27/2025 1:19 PM FINDINGS: MAMMOGRAPHY: Breast composition: There are scattered areas of fibroglandular density Breast mammogram findings: Digital diagnostic spot compression views of the right breast and 90 degree lateral view of the right breast demonstrate a persistent 0.7 cm ovoid mass. ULTRASOUND: Breast ultrasound findings: Sonographic images of the right breast including the retroareolar region, all 4 quadrants and the axilla do not demonstrate any solid masses. 0.5 cm cyst in the 9 o'clock axis 7 cm from the nipple most closely corresponding to the mass on mammography. Cursors were otherwise placed over normal fibroglandular and ductal structures in the right lower inner quadrant. No other solid or cystic masses in the remainder of the right breast. No architectural distortion or acoustical shadowing. No skin thickening or axillary adenopathy. IMPRESSION: Mass on screening mammography corresponds to underlying cystic change sonographically. There is no mammographic evidence of malignancy.Annual bilateral mammographic screening is recommended unless otherwise clinically indicated. ASSESSMENT: BI-RADS Category 2: Benign.
== END 2025-03-27 23:59 | disposition home or self-care (01) ==
LOC: RAD 13:16
PROVIDERS: PCP Emergency Medicine; Visit Provider Nurse Practitioner Obstetrics & Gynecology
DX: N60.01 Solitary cyst of right breast (principal); N63.10 Unspecified lump in the right breast, unspecified quadrant; R92.321 Mammographic fibroglandular density, right breast
CPT/HCPCS: 76641; 77061; 77065; G0279

== ENCOUNTER 2025-04-03 09:08 | Day surgery (SDC) | payer OTHER, SELFPAY ==
[2025-04-01 12:02] VITALS: BMI 36.1
[2025-04-03 09:35] VITALS: BP 136/86; PULSE 91; RESP 16; TEMP 36.2; O2SAT 100
[2025-04-03 09:47] LABS: POC Glucose,Bedside 251 (70-110)
[2025-04-03] MEDS: LIDOCAINE 1% 20ML MDV 20 ML (11:53)
--- NOTE | 2025-04-03 12:33 | EXP.OP.NOTE ---
Date of procedure: 04/03/25 Pre-op Diagnosis:: 8 mm right lateral neck cyst 7 mm mid chest cyst Post-op Diagnosis:: Same Procedure performed:: Excision of 8 mm right lateral neck cyst Excision of 7 mm mid chest cyst Surgeon:: Carl Samuel MD Anesthesia: local Estimated blood loss (mL): 5 Operative findings:: Both lesions excised in toto Operative note:: After informed consent was obtained the patient was taken to the procedure room. Her mid chest and right lateral neck were prepped and draped in a sterile fashion. After infiltration with local anesthetic elliptical incisions were made around both lesions. Dissection was taken sharply into the deep subcutaneous tissue. Both lesions were excised in toto and passed off for pathologic evaluation. Thermal cautery was utilized to achieve hemostasis. Both incisions were reapproximated with interrupted 6-0 nylon in a mattress fashion to facilitate hemostasis. Dressings were applied and the patient was discharged home in stable condition. Condition: stable Disposition: no change Specimens:: Right lateral neck cyst Mid chest cyst Complications:: No immediate
[2025-04-03 13:09] VITALS: BP 161/91; PULSE 78; RESP 16; TEMP 36.8; O2SAT 98
== END 2025-04-03 12:48 | disposition home or self-care (01) ==
PROVIDERS: PCP Emergency Medicine; Visit Provider Surgery
PROC: (CPT 11401; principal; 2025-04-03 10:15)
DX: L72.0 Epidermal cyst (principal); F17.210 Nicotine dependence, cigarettes, uncomplicated; E66.812 Obesity, class 2; E11.65 Type 2 diabetes mellitus with hyperglycemia; N89.8 Other specified noninflammatory disorders of vagina; Z79.890 Hormone replacement therapy; Z79.84 Long term (current) use of oral hypoglycemic drugs; Z79.899 Other long term (current) drug therapy; Z68.36 Body mass index [BMI] 36.0-36.9, adult; Z83.3 Family history of diabetes mellitus
CPT/HCPCS: 11401; 11421; 12031; 12041; 82962; J2003

== ENCOUNTER 2025-05-15 06:28 | Day surgery (SDC) | payer OTHER, SELFPAY ==
[2025-05-13 10:01] VITALS: BMI 34.0
[2025-05-15 06:37] VITALS: BP 166/90; PULSE 98; RESP 18; TEMP 36.2; O2SAT 97
--- NOTE | 2025-05-15 07:02 | EXP.GEN.HP ---
HPI HPI HPI: The patient presents for excision of bilateral cystic lesions on her upper back. Most recent office visit note dated April 30, 2025 reviewed. [facility] Disclaimer: The information contained in this section may have been updated after the patient was seen, as this information can be updated by other users. Medical History Diabetes Abnormal mammogram of right breast Surgical History History of local excision of skin lesion History of tubal ligation History of hysterectomy Family History Other Asthma Diabetes Hypertension Stroke Substance abuse Social History Smoking Status: Current every day smoker tobacco type: cigarettes packs per day: 1 second hand exposure: Yes alcohol intake: never substance use type: denies use current occupational status: other Travel in the last 8 weeks?: None household members: spouse housing: house current occupation: [employer] current occupational exposures/hazards: No Have you lived/traveled outside [place] in past 30 days?: No Contact w/someone who lives/traveled outside [place] past 30 days?: No Exposure to someone with infectious disease in past 14 days?: No Do you have a fever (greater than 100.4 F or 38 C)?: No Have you tested positive for COVID-19?: No Exposed to someone with COVID-19 in past 14 days?: No Do you have a sore throat?: No Do you have a cough?: No Do you have any weakness?: No Do you have any diarrhea?: No Are you experiencing any unusual bleeding?: No Do you have any muscle aches/pain?: No Do you have any abdominal pain?: No Are you experiencing loss of taste or smell?: No Other Medical History Have you received the Flu Vaccine for this season: No Have you received the Pneumonia Vaccine: No Review of Systems Review of Systems Review of systems:: pertinent systems reviewed and negative unless documented below Meds Home Medications and Allergies Home Medications ?Medication ?Instructions ?Recorded ?Confirmed ?Type estradiol 1 mg tablet (Estrace) 1 mg PO DAILY #30 tabs 01/14/25 05/13/25 Rx metformin 500 mg tablet,extended 500 mg PO DAILY 01/14/25 05/13/25 History release 24 hr montelukast 10 mg tablet 10 mg PO DAILY 01/14/25 05/13/25 History nicotine 21 mg/24 hr daily 21 mg transdermal DAILY 01/14/25 05/13/25 History transdermal patch omeprazole 40 mg capsule,delayed 40 mg PO DAILY 01/14/25 05/13/25 History release rosuvastatin 10 mg tablet 10 mg PO DAILY 01/14/25 05/13/25 History sumatriptan succinate 50 mg tablet 50 mg PO DAILY 01/14/25 05/13/25 History benzonatate 100 mg capsule 100 mg PO TID PRN cough #30 caps 03/27/25 05/13/25 Rx New Prescriptions to Start Prescriptions: Allergies Allergy/AdvReac Type Severity Reaction Status Date / Time No Known Allergies Allergy Verified 04/30/25 13:17 Exam Data for Last 24 hours Vital signs and Labs for Last 24 Hours: Temp Pulse Resp BP Pulse Ox O2 Del Method 97.2 F L 98 H 18 166/90 H 97 Room Air 05/15/25 06:37 05/15/25 06:37 05/15/25 06:37 05/15/25 06:37 05/15/25 06:37 05/15/25 06:37 I & O for Last 24 hours: Intake & Output 05/12/25 05/13/25 05/14/25 05/15/25 11:59 11:59 11:59 11:59 Weight 180 lb Constitutional Constitutional: no acute distress *Routine HEENT Exam Head: Present normocephalic Eye: Present EOMI ENT: Present mucous membranes moist *Routine Neck Exam Neck: Present full ROM *Routine Respiratory Exam Respiratory: Absent respiratory distress *Routine Cardiovascular Exam Cardiovascular: Absent tachycardia *Routine Abdominal Exam Abdominal: Present soft *Routine Rectal Exam Rectal:: deferred *Routine Genitalia Exam Genitalia:: deferred *Routine Extremities Exam Extremities: Present full ROM *Routine Skin Exam Skin: Absent erythema Comments: Unchanged bilateral upper back cystic lesions (when compared to evaluation during office visit dated April 30, 2025) *Routine Neurological Exam Neurological: Present alert Assessment and Plan *Assessment and plan (1) Inclusion cyst: Status: Acute Category: Medical Code(s): L72.0 - Epidermal cyst Plan: Excision of 1 cm left upper back cyst and 6 mm right upper back cyst today I have discussed the risks and benefits including, but not limited to: Bleeding Infection Damage to surrounding tissue Inherent risks of sedation The patient agrees to proceed.
--- NOTE | 2025-05-15 07:36 | EXP.OP.NOTE ---
Date of procedure: 05/15/25 Pre-op Diagnosis:: Left upper back cyst (1 cm) Right upper back cyst (6 mm) Post-op Diagnosis:: Same Procedure performed:: Excision of 1 cm left upper back cyst Excision of 6 mm right upper back cyst Surgeon:: Carl Samuel MD Anesthesia: local Estimated blood loss (mL): 5 Operative findings:: Lesion was excised in toto Operative note:: After informed consent was obtained the patient was taken to the procedure room. She was maintained in a seated position. Her upper back was prepped and draped in a sterile fashion. After infiltration with local anesthetic an elliptical incision was made around the 1 cm left upper back cystic lesion. Dissection was taken sharply into the deep subcutaneous tissue. The lesion was excised in toto and passed off for pathologic evaluation. Thermal cautery was utilized to achieve hemostasis. In a similar manner the 6 mm right upper back cystic lesion was excised. Skin was reapproximated with interrupted 4-0 nylon in a mattress fashion. Dressings were applied and the patient was discharged home in stable condition. Condition: stable Disposition: no change Specimens:: Upper back cystic lesions Complications:: No immediate
[2025-05-15 09:10] VITALS: BP 142/94; PULSE 82; RESP 16; TEMP 36.1; O2SAT 97
[2025-05-15] MEDS: LIDOCAINE 1% 20ML MDV 20 ML (09:10)
[2025-05-15 21:33] LABS: POC Glucose,Bedside 130 (70-110)
== END 2025-05-15 07:40 | disposition home or self-care (01) ==
PROVIDERS: PCP Family Medicine; Visit Provider Surgery
PROC: (CPT 11401; principal; 2025-05-15 07:30)
DX: L72.0 Epidermal cyst (principal); E11.9 Type 2 diabetes mellitus without complications; F17.210 Nicotine dependence, cigarettes, uncomplicated; Z79.84 Long term (current) use of oral hypoglycemic drugs; Z79.899 Other long term (current) drug therapy
CPT/HCPCS: 11401 ×2; 82962; J2003